=== PATIENT | male | born 1945 | race Caucasian/White ===

== ENCOUNTER → 2016-09-07 | Outpatient (CLI) | payer BC ==
[2016-09-07 17:30] LABS: Blood Urea Nitrogen 20 mg/dL (9-20); Non-African American GFR(MDRD) >60 (>60 ml/min/1.73 sqM)
--- NOTE | 2016-09-10 08:25 | CT ---
EXAMINATION TYPE: CT abdomen pelvis wo/w con DATE OF EXAM: 09/07/2016 6:58 PM COMPARISON: 05/13/2007, MRI lumbar spine 08/23/2016 INDICATION: Pt states of abdominal pain and abnormal findings on MRI. DLP: 2102.7 mGycm, Automated exposure control for dose reduction was used. CONTRAST: 100 mL of Omnipaque 300. Study performed with Oral Contrast TECHNIQUE: Axial images were obtained from above the diaphragm to the pubic rami in the axial plane a t 5 mm thick sections. Reconstructed images are reviewed on the computer in the coronal plane. FINDINGS: Limited CT sections are obtained the lung bases. The lung bases are clear. Coronary artery calcific ation is present. CT ABDOMEN: Liver: Normal Spleen: Normal Pancreas: Normal Adrenal glands: The adrenal glands are normal. Gallbladder: Normal Kidneys: Right kidney is atrophic. No masses are evident. No hydronephrosis is present. No cysts ar e present. Delayed images were obtained through the kidneys, which remain unremarkable. Aorta: Vascular calcification is within the aorta. There is aneurysmal dilatation of the distal abdo joel aorta measuring 3.8 cm in AP dimension. This begins in the infrarenal region and terminates abo ve the bifurcation. Inferior vena cava: Normal. CT PELVIS: Loops of bowel within the abdomen and pelvis are normal. There are loops of bowel which are incom pletely distended or lack oral contrast limiting their evaluation. Diverticular changes are through t he sigmoid colon. Appendix: Normal as visualized. Urinary bladder: Normal. Genitourinary structures: Prostate is prominent. Osseous structures: No suspicious lytic or sclerotic lesions. IMPRESSIONS: 1. Sigmoid diverticulosis without acute diverticulitis. 2. Atrophic right kidney.
== END | disposition home or self-care (01) ==
LOC: RADCTMAIN 16:11
PROVIDERS: ATTEND Physical Medicine & Rehabilitation
DX: N26.1 Atrophy of kidney (terminal) (principal); K57.30 Diverticulosis of large intestine without perforation or abscess without bleeding; M47.27 Other spondylosis with radiculopathy, lumbosacral region
CPT/HCPCS: 82565; 84520; 74178; 36415; Q9967

== ENCOUNTER 2021-07-10 13:20 | Inpatient (IN) | payer BC, MEDICARE ==
--- NOTE | 2021-07-10 13:41 | ED ---
Chest Pain HPI - General Stated Complaint: Chest Pain - History of Present Illness Initial Comments: 75-year-old male with past medical history of anxiety/depression, hyperlipidemia, thyroid disorder who presents to the emergency department with chest pain. Patient reports that he began having chest pain around 11:00 this morning. Described as a pressure sensation in his substernal region which radiates through to his back. He was significant at home, described as 10 out of 10 pain. He had associated nausea and diaphoresis. Patient denies previous history of cardiac disease. He called EMS who provided him with 4 chewable aspirins and 2 nitro. Patient does report to improvement in his pain. He denies ripping or tearing station to his back. No fevers, chills or cough. No headaches or visual changes. No other alleviating, precipitating or modifying factors - Related Data Home Medications Medication Instructions Recorded Confirmed ALPRAZolam [Xanax] 0.25 mg PO TID PRN 07/10/21 07/10/21 Atorvastatin [Lipitor] 20 mg PO HS 07/10/21 07/10/21 Dorzolamide 2% [Trusopt 2%] 1 drops BOTH EYES BID 07/10/21 07/10/21 Latanoprost [Xalatan 0.005%] 1 drop BOTH EYES HS 07/10/21 07/10/21 Levothyroxine Sodium [Synthroid] 100 mcg PO DAILY 07/10/21 07/10/21 Naproxen Sodium [Aleve] 220 mg PO DAILY 07/10/21 07/10/21 Tamsulosin [Flomax] 0.4 mg PO DAILY 07/10/21 07/10/21 buPROPion HCL [Wellbutrin XL] 300 mg PO DAILY 07/10/21 07/10/21 Allergies Allergy/AdvReac Type Severity Reaction Status Date / Time brimonidine AdvReac Rash/Hives Verified 07/10/21 17:59 Review of Systems ROS Statement: Those systems with pertinent positive or pertinent negative responses have been documented in the HPI. ROS Other: All systems not noted in ROS Statement are negative. EKG Findings - EKG Comments: EKG Findings:: EKG demonstrates sinus rhythm with a rate of 59. QRS 96. QTC of 429. There is ST segment elevation 1, aVL with reciprocal depressions in 3 and aVF. Past Medical History Past Medical History: Hyperlipidemia, Osteoarthritis (OA), Prostate Disorder, Thyroid Disorder History of Any Multi-Drug Resistant Organisms: None Reported Past Surgical History: Heart Catheterization Past Anesthesia/Blood Transfusion Reactions: No Reported Reaction Past Psychological History: Anxiety, Depression Past Alcohol Use History: Occasional Past Drug Use History: None Reported - Past Family History Father Additional Family Medical History / Comment(s): suicide Mother Family Medical History: Cancer Additional Family Medical History / Comment(s): bone and blood CA Brother(s) Additional Family Medical History / Comment(s): stents Course Vital Signs 07/10/21 07/10/21 07/10/21 13:40 13:44 13:46 Temperature Pulse Rate 58 L 59 L 61 Pulse Rate [ Dental Specialist ] Respiratory 20 20 20 Rate Blood Pressure 144/79 138/82 138/83 Blood Pressure [Left Arm] O2 Sat by Pulse 100 100 Oximetry 07/10/21 07/10/21 07/10/21 13:50 14:48 15:12 Temperature 97.7 F Pulse Rate Pulse Rate [ 53 L Dental Specialist ] Respiratory 12 25 H Rate Blood Pressure 141/84 Blood Pressure 124/69 [Left Arm] O2 Sat by Pulse 97 Oximetry 07/10/21 07/10/21 07/10/21 15:15 15:17 16:00 Temperature 97.7 F 97.7 F Pulse Rate 57 L 60 Pulse Rate [ Dental Specialist ] Respiratory 10 L Rate Blood Pressure 123/74 124/71 Blood Pressure [Left Arm] O2 Sat by Pulse 97 97 Oximetry 07/10/21 07/10/21 17:00 18:00 Temperature Pulse Rate 59 L 80 Pulse Rate [ Dental Specialist ] Respiratory 16 17 Rate Blood Pressure 133/88 111/64 Blood Pressure [Left Arm] O2 Sat by Pulse 95 97 Oximetry Chest Pain MDM - MDM Upon arrival the patient was placed into room 24. He is placed on continuous pulse ox and cardiac monitoring. 12-lead EKG was obtained by the nurse and brought to me for evaluation. Patient is immediately identified as having lateral wall STEMI. He has ST elevation in 1 and aVL as well as reciprocal changes in the inferior leads. I did evaluate the patient at this time who reports to continue chest pain which is improved after the nitro. STEMI alert is activated. Laboratory studies are ordered. Dr. Cadena does present to the emergency department within 5 minutes to evaluate the patient. Patient is given 4000 units of heparin and taken off to the [facility] in stable condition for cardiac catheterization. I did call and speak with Dr. Crenshaw who agreed to admit the patient Disposition Clinical Impression: Chest pain, STEMI (ST elevation myocardial infarction) Disposition: ADMITTED IP TO THIS HOSP Condition: Stable Is patient prescribed a controlled substance at d/c from ED?: No Decision to Admit Reason: Admit from EC Decision Date: 07/10/21 Decision Time: 14:19
[2021-07-10] MEDS ORDERED: HEPARIN SODIUM 1,000 UN/ML (10ML VL) IVP STA (13:50)
[2021-07-10] MEDS ORDERED: ATORVASTATIN 80 MG TAB PO STA (13:50)
[2021-07-10 13:57] LABS: Basophils # (A) 0.1 k/uL (0-0.2); Basophils % (A) 1 %; Eosinophils # (A) 0.2 k/uL (0-0.7); Eosinophils % (A) 2 %; HCT 38.3 % (39.0-53.0); HGB 12.8 gm/dL (13.0-17.5); Lymphocytes % (A) 11 %; MCH 29.9 pg (25.0-35.0); MCHC 33.3 g/dL (31.0-37.0); MCV 89.8 fL (80.0-100.0); Mean Platelet Volume 8.2; Monocytes # (A) 0.4 k/uL (0-1.0); Monocytes % (A) 4 %; Neutrophils # (A) 7.1 k/uL (1.3-7.7); Neutrophils % (A) 81 %; Platelet Count 169 k/uL (150-450); RBC 4.27 m/uL (4.30-5.90); RDW 13.1 % (11.5-15.5); WBC 8.8 k/uL (3.8-10.6)
[2021-07-10] MEDS ORDERED: SODIUM CHLORIDE 0.9% 500 ML 500 ML IV ONE (14:00)
[2021-07-10] MEDS ORDERED: fentaNYL (PF) 50 MCG/ML 2 ML AMP ONE (14:04)
[2021-07-10] MEDS ORDERED: LIDOCAINE 1% INJ 10MG/ML (20 ML MDV) ONE (14:04)
[2021-07-10] MEDS ORDERED: VERAPAMIL 2.5 MG/ML 2 ML AMP ONE (14:04)
[2021-07-10 14:10] LABS: Albumin 3.5 g/dL (3.5-5.0); Calcium 8.1 mg/dL (8.4-10.2); Magnesium 1.6 mg/dL (1.6-2.3); Potassium 4.2 mmol/L (3.5-5.1); Total Bilirubin 0.8 mg/dL (0.2-1.3); Total Protein 6.1 g/dL (6.3-8.2)
[2021-07-10] MEDS ORDERED: fentaNYL (PF) 50 MCG/ML 2 ML AMP IV ONE (14:11)
[2021-07-10] MEDS ORDERED: LIDOCAINE 1% INJ 10MG/ML (20 ML MDV) SQ ONE (14:11)
[2021-07-10 14:15] LABS: Prothrombin Time 10.7 sec (9.0-12.0)
[2021-07-10] MEDS ORDERED: VERAPAMIL SYRINGE (5 MG/10 ML) INTRAARTER ONE (14:15)
[2021-07-10] MEDS ORDERED: HEPARIN SODIUM 1,000 UN/ML (10ML VL) IV ONE (14:19)
[2021-07-10] MEDS ORDERED: NALOXONE 0.4 MG/ML 1 ML VIAL IV PRN (14:19)
[2021-07-10] MEDS ORDERED: TICAGRELOR 90 MG TAB ONE (14:21)
[2021-07-10] MEDS ORDERED: TICAGRELOR 90 MG TAB PO ONE (14:22)
--- NOTE | 2021-07-10 14:24 | XR ---
EXAMINATION TYPE: XR chest 1V portable DATE OF EXAM: 07/10/2021 Comparison: 09/03/2014 Clinical History: 75-year-old male with chest pain Findings: Heart limits of normal in size. Mild tortuosity/ectasia of the thoracic aorta. Diffuse interstitial p rominence appears increased from 2014. No judith consolidation or sizable pleural effusion on the fron alison view. Impression: Cardiomegaly and diffuse interstitial changes. Correlate for mild CHF with pulmonary vascular congest ion.
[2021-07-10] MEDS ORDERED: NITROGLYCERIN 1000MCG/10ML SYRINGE INTRACORON ONE (14:30)
[2021-07-10] MEDS ORDERED: IOPAMIDOL-370 125ML BTL INJ ONE (14:34)
[2021-07-10] MEDS ORDERED: IOPAMIDOL-370 100ML BTL INJ ONE (14:39)
[2021-07-10] MEDS ORDERED: MAG HYDROX/AL HYDROX/SIMETH 30 ML CUP PO PRN (14:48)
[2021-07-10] MEDS ORDERED: ATROPINE SULFATE 0.1 MG/ML 10ML SYRINGE IV PRN (14:48)
[2021-07-10] MEDS ORDERED: RX INFO: IV CONTRAST WAS GIVEN 1 EACH MISC MISCELLANE PRN (14:48)
[2021-07-10] MEDS ORDERED: ZOLPIDEM 5 MG TAB PO PRN (14:48)
[2021-07-10] MEDS ORDERED: NITROGLYCERIN SL TABS 0.4 MG TAB SUBLINGUAL PRN (14:48)
--- NOTE | 2021-07-10 14:57 | P.CRDCN ---
History of Present Illness Consult date: 07/10/21 History of present illness: History of Present Illness: The patient is a 75-year-old male with known history of hypertension, recently diagnosed with possible abdominal aortic aneurysm who presented to the emergency room with severe substernal chest discomfort. He has no prior history of myocardial infarction or congestive heart failure. In the ER his EKG showed ST segment elevation in lead 1 and aVL. He denies any chronic dyspnea on exertion, peripheral edema, dizziness or palpitations. He has no history of PND or orthopnea. He has no prior history of malignant arrhythmia. He was scheduled to undergo CT scan of his abdomen to further evaluate his abdominal aortic aneurysm. His medications are home include metoprolol 25 mg daily levothyroxine, aspirin Proscar, Effexor Review of Systems: Respiratory: No history of asthma, bronchitis or recent cough. GI: She had nausea and vomiting today. No history of peptic ulcer disease. No recent GI bleed. : No hematuria or dysuria. Nervous System: No stroke or seizure. Physical Examination: Blood pressure 138/80 the heart rate in the 60s Head: Normocephalic. Eyes: Sclerae nonicteric. Neck: Good carotid upstroke, no bruit, no jugular venous distention. Lungs: Clear to auscultation. Heart: Regular rate and rhythm, S1-S2, no S3, no rub. Systolic ejection murmur at the base . Abdomen: Soft nontender, positive bowel sounds no organomegaly. Extremities: No edema, intact distal pulses. Labs: EKG shows sinus mechanism with ST segment elevation in 1 and aVL and T-wave inversion in leads 3 and aVF. Labs pending Impression: 1. Acute high lateral wall AR probable diagonal branch territory 2. History of hypertension 3. History of abdominal aortic aneurysm Plan: 1. Proceed with emergent cardiac catheterization, the risks and the complications were discussed with the patient and his 2. Obtain an echocardiogram with Doppler 3. Obtain an ultrasound of the abdomen to evaluate the abdominal aortic aneurysm 4. Add statin 5. Depending on his progress further recommendations will be made. Thank you for this consult we will follow with you. Past Medical History Past Medical History: Hyperlipidemia, Osteoarthritis (OA), Prostate Disorder, Thyroid Disorder History of Any Multi-Drug Resistant Organisms: None Reported Past Surgical History: Heart Catheterization Past Anesthesia/Blood Transfusion Reactions: No Reported Reaction Past Psychological History: Anxiety, Depression Past Alcohol Use History: Occasional Past Drug Use History: None Reported - Past Family History Father Additional Family Medical History / Comment(s): suicide Mother Family Medical History: Cancer Additional Family Medical History / Comment(s): bone and blood CA Brother(s) Additional Family Medical History / Comment(s): stents Medications and Allergies Home Medications Medication Instructions Recorded Confirmed Type Finasteride [Proscar] 5 mg PO DAILY 09/03/14 04/19/15 History Levothyroxine Sodium [Synthroid] 25 mcg PO DAILY 09/03/14 04/19/15 History Mirabegron [Myrbetriq] 50 mg PO DAILY 09/03/14 04/19/15 History ALPRAZolam [Xanax] 0.25 mg PO BID PRN #10 tab 09/04/14 04/19/15 Rx Aspirin 81 mg PO DAILY 09/04/14 04/19/15 History Metoprolol Tartrate [Lopressor] 25 mg PO DAILY 09/13/14 04/19/15 History Venlafaxine HCl [Effexor] 75 mg PO DAILY 09/13/14 04/19/15 History Allergies Allergy/AdvReac Type Severity Reaction Status Date / Time No Known Allergies Allergy Verified 04/13/15 11:16 Physical Exam Vitals: Vital Signs Pulse Resp BP Pulse Ox 07/10/21 13:50 141/84 07/10/21 13:46 61 20 138/83 07/10/21 13:44 59 L 20 138/82 100 07/10/21 13:40 58 L 20 144/79 100 Intake and Output 07/09/21 07/10/21 07/10/21 22:59 06:59 14:59 Intake Total 150 Balance 150 Intake: IV 150 Other: Weight 92.986 kg Results 07/10/21 13:44 07/10/21 13:44 Cardiac Enzymes 07/10/21 07/10/21 Range/Units 13:44 13:44 AST 23 (17-59) U/L Troponin I 0.073 H* (0.000-0.034) ng/mL Coagulation 07/10/21 Range/Units 13:44 PT 10.7 (9.0-12.0) sec APTT 24.0 (22.0-30.0) sec CBC 07/10/21 Range/Units 13:44 WBC 8.8 (3.8-10.6) k/uL RBC 4.27 L (4.30-5.90) m/uL Hgb 12.8 L (13.0-17.5) gm/dL Hct 38.3 L (39.0-53.0) % Plt Count 169 (150-450) k/uL Comprehensive Metabolic Panel 07/10/21 Range/Units 13:44 Sodium 139 (137-145) mmol/L Potassium 4.2 (3.5-5.1) mmol/L Chloride 111 H (98-107) mmol/L Carbon Dioxide 23 (22-30) mmol/L BUN 24 H (9-20) mg/dL Creatinine 1.55 H (0.66-1.25) mg/dL Glucose 124 H (74-99) mg/dL Calcium 8.1 L (8.4-10.2) mg/dL AST 23 (17-59) U/L ALT 16 (4-49) U/L Alkaline Phosphatase 79 (38-126) U/L Total Protein 6.1 L (6.3-8.2) g/dL Albumin 3.5 (3.5-5.0) g/dL Current Medications Generic Name Dose Route Start Last Admin Trade Name Freq PRN Reason Stop Dose Admin Naloxone HCl 0.2 mg 07/10/21 14:19 Naloxone 0.4 Mg/Ml 1 Ml Vial IV Q2M PRN Opioid Reversal Intake and Output 07/09/21 07/10/21 07/10/21 22:59 06:59 14:59 Intake Total 150 Balance 150 Intake: IV 150 Other: Weight 92.986 kg Patient Weight 07/11/21 06:59 Weight 92.986 kg 07/10/21 13:44 07/10/21 13:44
[2021-07-10] MEDS ORDERED: SODIUM CHLORIDE 0.9% 1,000 ML in EMPTY BAG 1 BAG IV SCH (15:00)
--- NOTE | 2021-07-10 15:04 | P.CARDCATH ---
Date of Procedure: 07/10/21 Description of Procedure: Cardiac Catheterization: The patient is a 75-year-old male who presented with acute chest discomfort and ST elevation in lead 1 and aVL. Recommendations were made regarding cardiac catheterization, the risks and the complications were discussed with the patient who is in full understanding and agreement. Procedure Description: Patient was brought to [facility] in fasting semi-sedated state after receiving Fentanyl and Benadryl achieiving moderate conscious sedated state. Using Xylocaine Anesthesia and Seldinger technique, a 6-Botswanan sheath was introduced in the right radial artery . Subsequently, selective coronary angiography performed using a 5-B[place]wanan 3.5 bend right Matthew catheter and a 6-B[place]wanan 3.75 EBU guiding catheter. Multiple views of the coronary artery including hemiaxial views were obtained. After obtaining images of the coronary arteries angioplasty and stenting was performed. The 5- [place] pigtail catheter was used to cross the aortic valve and LVEDP was calculated. Following that, catheter and sheath were removed. Hemostasis was obtained with deployment of TR band . There was no immediate complication. Patient was returned to room in stable condition. Of note, the patient received a total of 4000 units of intravenous heparin as well as intra-arterial verapamil. There was no immediate complications. Findings: Fluoroscopy showed severe calcifications of the proximal LAD and the left main Left main: This is a large size vessel, bifurcating to LAD and left circumflex, left main has mild plaque distally of 10-20% LAD: This is a large size vessel, reaching to the apex with a wraparound the apex segment. The proximal LAD is calcified and had a stent to 20% plaque, it gives rise to a first diagonal branch that is totally occluded proximally with no antegrade flow. The mid and distal LAD has no high-grade stenosis. Left circumflex: This is a nondominant vessel, small to moderate in caliber and gives rise to an obtuse marginal branch of small caliber that has intimal disease proximally up to 70% the rest of the vessel has no high-grade stenosis RCA: This is a large dominant vessel, bifurcating into PDA and PLV. The mid RCA has diffuse intimal disease up to 40%. The ostium of the PDA has 70% plaque. The rest of the vessel has no high-grade stenosis [Left] Ventriculogram: Was not performed Hemodynamics: There was no gradient across the aortic valve, LVEDP 16-22 mmHg Conclusion: 1. Acutely occluded first diagonal branch 2. Moderate disease in the RCA and left circumflex 3. Mild disease in the left main and proximal LAD 4. Calcified left main and LAD Recommendations: In view of the findings and the anatomy I have recommended to proceed with angioplasty and stenting of the diagonal branch. The procedure as well as the risks and the complications were discussed with the patient who was in full understanding and agreement.
--- NOTE | 2021-07-10 15:09 | P.CARDCATH ---
Date of Procedure: 07/10/21 Description of Procedure: PERCUTANEOUS TRANSLUMINAL CORONARY ANGIOPLASTY CLINICAL INFORMATION: The patient is a 75-year-old male who presented with an acute myocardial infarction, underwent cardiac catheterization and was found to have totally occluded first diagonal branch. Recommendations were made reg arding angioplasty and stenting, the procedure as well as the risks and the complications were discussed with the patient who was in agreement. PROCEDURE: A 6 Bengali 3.75 EBU guiding catheter was introduced into the system. After cannulating the left main, a 0.014 balanced medium with J-wire with the help of a super cross microcatheter was advanced across the lesion and positioned distally. After removing the microcatheter a 2.5 a 12 mm Treck was advanced and inflation at 8 shane were done. Following that a 2.5 x 18 stent [employer] jos point was deployed. It was dilated at 16. After the last inflation, after appropriate wait, the balloon and the guidewire were withdrawn back into the guiding catheter. Images were obtained and repeated. Those images reveal stable successful stenting. At that point, the guiding catheter, the balloon, and guidewire were removed. Following that LVDP was measured. The sheath was removed. Hemostasis was obtained with deployment the TR band. There were no immediate complications. The patient was returned to the room in stable condition. Of note, the patient received 4000 units of heparin as well as Brilinta. His ACT was followed. He had resolution of his chest discomfort and EKG changes. RESULTS: Successful stenting of the first diagonal branch with reduction of stenosis from 100% to 0% RECOMMENDATIONS: The patient will be continued on dual antiplatelet treatment for one year. The findings and recommendations were discussed with the patient who was in full agreement and understanding. Duration of sedation 33 minutes.
[2021-07-10 15:21] LABS: Glucose,Whole Blood 120 mg/dL (75-99)
[2021-07-10] MEDS ORDERED: SODIUM CHLORIDE 0.9% 1,000 ML IV SCH (17:30)
--- NOTE | 2021-07-10 18:50 | P.HPIM ---
History of Present Illness Patient was on-year-old male came in with complaints of chest pain which started a day morning at 11 AM along with diaphoresis and severe chest discomfort which didn't resolve. Patient usually has angina based which usually resolves in a few minutes but this time it didn't resolve because of which patient came to ER on have ST elevation myocardial infarction [place] patient was taken to [facility] and had stenting of first diagonal branch. Patient had elevated creatinine of 1.55. Patient last creatinine was available for more than 3 years ago at that time it was within normal limits. REVIEW OF SYSTEMS: CONSTITUTIONAL: No fever, no malaise, no fatigue. HEENT: No recent visual problems or hearing problems. Denied any sore throat. CARDIOVASCULAR: NoPND, no palpitations, no syncope. PULMONARY: No shortness of breath, no cough, no hemoptysis. GASTROINTESTINAL: No diarrhea, no nausea, no vomiting, no abdominal pain. NEUROLOGICAL: No headaches, no weakness, no numbness. HEMATOLOGICAL: Denies any bleeding or petechiae. GENITOURINARY: Denies any burning micturition, frequency, or urgency. MUSCULOSKELETAL/RHEUMATOLOGICAL: Denies any joint pain, swelling, or any muscle pain. ENDOCRINE: Denies any polyuria or polydipsia. The rest of the 14-point review of systems is negative. PHYSICAL EXAMINATION: GENERAL: The patient is alert and oriented x3, not in any acute distress. Well developed, well nourished. HEENT: Pupils are round and equally reacting to light. EOMI. No scleral icterus. No conjunctival pallor. Normocephalic, atraumatic. No pharyngeal erythema. No thyromegaly. CARDIOVASCULAR: S1 and S2 present. No murmurs, rubs, or gallops. PULMONARY: Chest is clear to auscultation, no wheezing or crackles. ABDOMEN: Soft, nontender, nondistended, normoactive bowel sounds. No palpable organomegaly. MUSCULOSKELETAL: No joint swelling or deformity. EXTREMITIES: No cyanosis, clubbing, or pedal edema. NEUROLOGICAL: Gross neurological examination did not reveal any focal deficits. SKIN: No rashes. Assessment and plan -Acute ST elevation myocardial infarction: Patient is status post a cardiac ca theterization and angioplasty of first diagonal branch as mentioned above and patient is presently and will antiplatelet therapy, statin, beta natalie. Echocardiogram is pending -Possibility of acute renal failure there may be a chronic kidney disease as well his previous creatinine was 1 which was more than 3 years ago. Patient will continue with IV fluid will recheck the creatinine tomorrow. -Hypothyroidism continue with levothyroxine -Depression for which patient is an approximately which will be continued -Benign prostatic hypertrophy for which patient is on finasteride which will be continued DVT prophylaxis: Past Medical History Past Medical History: Hyperlipidemia, Osteoarthritis (OA), Prostate Disorder, Thyroid Disorder History of Any Multi-Drug Resistant Organisms: None Reported Past Surgical History: Heart Catheterization Past Anesthesia/Blood Transfusion Reactions: No Reported Reaction Past Psychological History: Anxiety, Depression Past Alcohol Use History: Occasional Past Drug Use History: None Reported - Past Family History Father Additional Family Medical History / Comment(s): suicide Mother Family Medical History: Cancer Additional Family Medical History / Comment(s): bone and blood CA Brother(s) Additional Family Medical History / Comment(s): stents Medications and Allergies Home Medications Medication Instructions Recorded Confirmed Type ALPRAZolam [Xanax] 0.25 mg PO TID PRN 07/10/21 07/10/21 History Atorvastatin [Lipitor] 20 mg PO HS 07/10/21 07/10/21 History Dorzolamide 2% [Trusopt 2%] 1 drops BOTH EYES BID 07/10/21 07/10/21 History Latanoprost [Xalatan 0.005%] 1 drop BOTH EYES HS 07/10/21 07/10/21 History Levothyroxine Sodium [Synthroid] 100 mcg PO DAILY 07/10/21 07/10/21 History Naproxen Sodium [Aleve] 220 mg PO DAILY 07/10/21 07/10/21 History Tamsulosin [Flomax] 0.4 mg PO DAILY 07/10/21 07/10/21 History buPROPion HCL [Wellbutrin XL] 300 mg PO DAILY 07/10/21 07/10/21 History Allergies Allergy/AdvReac Type Severity Reaction Status Date / Time brimonidine AdvReac Rash/Hives Verified 07/10/21 17:59 Physical Exam Vitals: Vital Signs Temp Pulse Pulse Resp BP BP Pulse Ox 07/10/21 18:00 80 17 111/64 97 07/10/21 17:00 59 L 16 133/88 95 07/10/21 16:00 97.7 F 60 124/71 97 07/10/21 15:17 97.7 F 07/10/21 15:15 57 L 10 L 123/74 97 07/10/21 15:12 25 H 07/10/21 14:48 97.7 F 53 L 12 124/69 97 07/10/21 13:50 141/84 07/10/21 13:46 61 20 138/83 07/10/21 13:44 59 L 20 138/82 100 07/10/21 13:40 58 L 20 144/79 100 Intake and Output 07/10/21 07/10/21 07/10/21 06:59 14:59 22:59 Intake Total 150 300 Output Total 800 Balance 150 -500 Intake: IV 150 300 0.9 300 Output: Urine 800 Other: Weight 92.986 kg 92.986 kg Results CBC & Chem 7: 07/10/21 13:44 07/10/21 13:44 Labs: Abnormal Lab Results - Last 24 Hours (Table) 07/10/21 07/10/21 07/10/21 Range/Units 13:44 13:44 13:44 RBC 4.27 L (4.30-5.90) m/uL Hgb 12.8 L (13.0-17.5) gm/dL Hct 38.3 L (39.0-53.0) % Chloride 111 H (98-107) mmol/L BUN 24 H (9-20) mg/dL Creatinine 1.55 H (0.66-1.25) mg/dL Glucose 124 H (74-99) mg/dL POC Glucose (mg/dL) (75-99) mg/dL Calcium 8.1 L (8.4-10.2) mg/dL Troponin I 0.073 H* (0.000-0.034) ng/mL Total Protein 6.1 L (6.3-8.2) g/dL 07/10/21 Range/Units 15:19 RBC (4.30-5.90) m/uL Hgb (13.0-17.5) gm/dL Hct (39.0-53.0) % Chloride (98-107) mmol/L BUN (9-20) mg/dL Creatinine (0.66-1.25) mg/dL Glucose (74-99) mg/dL POC Glucose (mg/dL) 120 H (75-99) mg/dL Calcium (8.4-10.2) mg/dL Troponin I (0.000-0.034) ng/mL Total Protein (6.3-8.2) g/dL Thrombosis Risk Factor Assmnt - Choose All That Apply Any of the Below Risk Factors Present?: Yes Each Factor Represents 1 point: Acute [place] Other Risk Factors: Yes Each Risk Factor Represents 3 Points: Age 75 years or older Other congenital or acquired thrombophilia - If yes, enter type in comment: No Thrombosis Risk Factor Assessment Total Risk Factor Score: 4 Thrombosis Risk Factor Assessment Level: Moderate Risk
[2021-07-10] MEDS: SODIUM CHLORIDE 0.45% 1,000 ML IV SCH (18:59)
[2021-07-10] MEDS: METOPROLOL TARTRATE 25 MG TAB PO SCH (20:55)
[2021-07-10] MEDS ORDERED: Magnesium Replacement Protocol 1 EACH MISC MISCELLANE PRN (22:05)
[2021-07-10] MEDS: MAGNESIUM SULFATE-D5W PMX 1 GM in DEXTROSE/WATER 1 100ML.BAG IVPB SCH (22:44)
[2021-07-11] MEDS: MAGNESIUM SULFATE-D5W PMX 1 GM in DEXTROSE/WATER 1 100ML.BAG IVPB SCH (00:06)
[2021-07-11 07:24] LABS: HCT 38.1 % (39.0-53.0); HGB 12.4 gm/dL (13.0-17.5); MCHC 32.5 g/dL (31.0-37.0); MCV 92.2 fL (80.0-100.0); Mean Platelet Volume 8.4; Platelet Count 152 k/uL (150-450); RBC 4.13 m/uL (4.30-5.90); RDW 13.4 % (11.5-15.5)
[2021-07-11 07:41] LABS: Calcium 7.8 mg/dL (8.4-10.2); Magnesium 2.1 mg/dL (1.6-2.3); Potassium 4.2 mmol/L (3.5-5.1)
--- NOTE | 2021-07-11 07:58 | P.PN ---
Subjective Progress Note Date: 07/11/21 PROGRESS NOTE The patient is a 75-year-old male presented with an acute lateral wall myocardial infarction and was found to have occluded diagonal branch. He underwent stenting of that vessel. He is doing well this morning, denies any chest discomfort or dyspnea. He is in sinus mechanism without any evidence of ventricular ectopic activity. Hemodynamically he is stable. He continues to be on aspirin once a day, Lipitor 80 mg daily, metoprolol 25 mg twice a day, Brilinta 90 mg twice a day PHYSICAL EXAMINATION: Blood pressure 131/70 heart rate 54 LUNGS: [Clear to auscultation] HEART: [Regular rate and rhythm, S1, S2. No S3. systolic ejection murmur at the base, 2/6 ] ABDOMEN: [Soft, nontender, no organomegaly] EXTREMETIES: [No edema, right radial pulse intact] LAB: Potassium 4.2, hemoglobin 12.4, BUN 20 and creatinine 1.30. Troponin 74.5. IMPRESSION: 1. Post-myocardial infarction with acutely occluded diagonal branch, status post stenting 2. Ckdm-hc-avxvrlnx triple-vessel disease 3. Chronic kidney disease 4. Abdominal aortic aneurysm PLAN: 1. Obtain an echocardiogram with Doppler 2. Follow renal functions and if stable add FERNANDO inhibitor tomorrow 3. Abdominal ultrasound to evaluate abdominal aortic aneurysm. 4. Increase physical activity and transfer to telemetry 5. If stable probable discharge in 24 hours. Objective - Vital Signs Vital signs: Vital Signs Temp 98.0 F 07/11/21 04:00 Pulse 54 L 07/11/21 07:00 Resp 9 L 07/11/21 07:00 BP 131/73 07/11/21 07:00 Pulse Ox 98 07/11/21 07:00 Intake & Output 07/10/21 07/11/21 07/11/21 18:59 06:59 18:59 Intake Total 450 950 75 Output Total 800 1375 0 Balance -350 -425 75 Weight 92.986 kg 97.3 kg Intake: IV 450 950 75 0.9 300 750 75 Magnesium Sulfate-D5w Pmx 200 1 gm In Dextrose/Water 1 100ml.bag @ 100 mls/hr IVPB Q1H [facility] Rx#: [id number] Output: Urine 800 1375 0 Other: Voiding Method Urinal # Voids 1 0 - Labs CBC & Chem 7: 07/11/21 06:43 07/11/21 06:43 Labs: Abnormal Lab Results - Last 24 Hours (Table) 07/10/21 07/10/21 07/10/21 Range/Units 13:44 13:44 13:44 RBC 4.27 L (4.30-5.90) m/uL Hgb 12.8 L (13.0-17.5) gm/dL Hct 38.3 L (39.0-53.0) % Sodium (137-145) mmol/L Chloride 111 H (98-107) mmol/L BUN 24 H (9-20) mg/dL Creatinine 1.55 H (0.66-1.25) mg/dL Glucose 124 H (74-99) mg/dL POC Glucose (mg/dL) (75-99) mg/dL Calcium 8.1 L (8.4-10.2) mg/dL Troponin I 0.073 H* (0.000-0.034) ng/mL Total Protein 6.1 L (6.3-8.2) g/dL 07/10/21 07/10/21 07/10/21 Range/Units 15:19 18:10 21:31 RBC (4.30-5.90) m/uL Hgb (13.0-17.5) gm/dL Hct (39.0-53.0) % Sodium (137-145) mmol/L Chloride (98-107) mmol/L BUN (9-20) mg/dL Creatinine (0.66-1.25) mg/dL Glucose (74-99) mg/dL POC Glucose (mg/dL) 120 H (75-99) mg/dL Calcium (8.4-10.2) mg/dL Troponin I 68.300 H* 74.500 H* (0.000-0.034) ng/mL Total Protein (6.3-8.2) g/dL 07/11/21 07/11/21 Range/Units 06:43 06:43 RBC 4.13 L (4.30-5.90) m/uL Hgb 12.4 L (13.0-17.5) gm/dL Hct 38.1 L (39.0-53.0) % Sodium 136 L (137-145) mmol/L Chloride 109 H (98-107) mmol/L BUN (9-20) mg/dL Creatinine 1.30 H (0.66-1.25) mg/dL Glucose 107 H (74-99) mg/dL POC Glucose (mg/dL) (75-99) mg/dL Calcium 7.8 L (8.4-10.2) mg/dL Troponin I (0.000-0.034) ng/mL Total Protein (6.3-8.2) g/dL
[2021-07-11] MEDS: SODIUM CHLORIDE 0.45% 1,000 ML IV SCH (09:13)
[2021-07-11] MEDS: ASPIRIN 81 MG PO SCH (09:14)
[2021-07-11] MEDS: VENLAFAXINE HCL 75 MG TAB PO SCH (09:14)
[2021-07-11] MEDS: LEVOTHYROXINE 25 MCG TAB PO SCH (09:14)
[2021-07-11] MEDS: TICAGRELOR 90 MG TAB PO SCH ×2 (09:14→19:55)
[2021-07-11] MEDS: METOPROLOL TARTRATE 25 MG TAB PO SCH ×2 (09:14→19:55)
--- NOTE | 2021-07-11 09:24 | US ---
EXAMINATION TYPE: US duplex aorta DATE OF EXAM: 07/11/2021 COMPARISON: CT CLINICAL HISTORY: AAA. Known AAA EXAM MEASUREMENTS: Abdominal Aorta: Proximal: 1.9 x 2.3 cm Mid: 2.3 x 2.3 cm Distal: 4.5 x 4.1 cm Bifurcation: MARIALUISA: 1.3 x 1.4 cm VICENTA: 1.3 x 1.2 cm AAA distal Aorta IMPRESSION: The distal abdominal aorta measures 4.5 x 4.1 cm compatible with aneurysmal dilation. 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
[2021-07-11] MEDS: FINASTERIDE 5 MG TAB PO SCH (10:08)
[2021-07-11 10:19] VITALS: BMI 33.5
--- NOTE | 2021-07-11 13:00 | ECHOF ---
Referral Reason:mi MEASUREMENTS -------- HEIGHT: 170.2 cm WEIGHT: 93.0 kg BP: IVSd: 1.2 cm (0.6 - 1.1) LVIDd: 4.2 cm (3.9 - 5.3) LVPWd: 1.3 cm (0.6 - 1.1) IVSs: 1.5 cm LVIDs: 2.2 cm LVPWs: 1.3 cm LAESV Index (A-L): 35.53 ml/m Ao Diam: 3.6 cm (2.0 - 3.7) AV Cusp: 1.8 cm (1.5 - 2.6) LA Diam: 2.9 cm (2.7 - 3.8) MV EXCURSION: 12.495 mm (> 18.000) MV EF SLOPE: 38 mm/s (70 - 150) EPSS: 1.8 cm MV E Delfin: 1.25 m/s MV DecT: 253 ms MV A Delfin: 1.25 m/s MV E/A Ratio: 1.01 AV maxP.32 mmHg AV meanP.26 mmHg AR PHT: 904 ms RAP: 5.00 mmHg RVSP: 13.45 mmHg FINDINGS -------- This was a technically difficult study with suboptimal views. The left ventricular size is normal. There is mild concentric left ventricular hypertrophy. Overa ll left ventricular systolic function is low-normal with, an EF between 50 - 55 %. The right ventricle is normal in size. LA is moderately dilated 34-39 ml/m2 The right atrial size is normal. 5.0mg of Lumason was utilized for enhancement of images Aortic valve is trileaflet and is mildly thickened. There is mild aortic regurgitation. There is mild aortic stenosis present. Peak/mean gradient across the Aortic Valve is 14.32mmHg / 7.26mmHg. The mitral valve is normal. There is trace mitral regurgitation. Mild tricuspid regurgitation present. Right ventricular systolic pressure is normal at < 35 mmHg. There is no evidence of pulmonary hypertension. There is no pulmonic regurgitation present. The aortic root size is normal. Normal inferior vena cava with normal inspiratory collapse consistent with estimated right atrial pre ssure of 5 mmHg. There is no pericardial effusion. CONCLUSIONS -------- 1. The left ventricular size is normal. 2. There is mild concentric left ventricular hypertrophy. 3. Overall left ventricular systolic function is low-normal with, an EF between 50 - 55 %. 4. LA is moderately dilated 34-39 ml/m2 5. Aortic valve is trileaflet and is mildly thickened. 6. There is mild aortic regurgitation. 7. There is mild aortic stenosis present. 8. Peak/mean gradient across the Aortic Valve is 14.32mmHg / 7.26mmHg. 9. There is trace mitral regurgitation. 10. Mild tricuspid regurgitation present. 11. There is no pericardial effusion. POWER LINEMAN: Yumiko Gallardo RDCS
--- NOTE | 2021-07-11 13:44 | P.PN ---
Subjective Patient was on-year-old male came in with complaints of chest pain which started a day morning at 11 AM along with diaphoresis and severe chest discomfort which didn't resolve. Patient usually has angina based which usually resolves in a few minutes but this time it didn't resolve because of which patient came to ER on have ST elevation myocardial infarction [place] patient was taken to [facility] and had stenting of first diagonal branch. Patient had elevated creatinine of 1.55. Patient last creatinine was available for more than 3 years ago at that time it was within normal limits. 07/11/2021 patient is clinically doing well patient had an echocardiogram which showed normal ejection fraction. Patient probably can be discharged tomorrow his highest troponin was around 74. Constitutional: Denied any fatigue denied any fever. Cardio vascular: denied any chest pain, palpitations Gastrointestinal denied any nausea vomiting Pulmonary: Denied any shortness of breath cough Neurologic denied any new focal deficits All inpatient medications were reviewed and appropriate changes in these medications as dictated in the interval history and assessment and plan. PHYSICAL EXAMINATION: GENERAL: The patient is alert and oriented x3, not in any acute distress. Well developed, well nourished. HEENT: Pupils are round and equally reacting to light. EOMI. No scleral icterus. No conjunctival pallor. Normocephalic, atraumatic. No pharyngeal erythema. No thyromegaly. CARDIOVASCULAR: S1 and S2 present. No murmurs, rubs, or gallops. PULMONARY: Chest is clear to auscultation, no wheezing or crackles. ABDOMEN: Soft, nontender, nondistended, normoactive bowel sounds. No palpable organomegaly. MUSCULOSKELETAL: No joint swelling or deformity. EXTREMITIES: No cyanosis, clubbing, or pedal edema. NEUROLOGICAL: Gross neurological examination did not reveal any focal deficits. SKIN: No rashes. Assessment and plan -Acute ST elevation myocardial infarction: Patient is status post a cardiac catheterization and angioplasty of first diagonal branch as mentioned above and patient is presently and will antiplatelet therapy, statin, beta natalie. Echocardiogram is pending -Possibility of acute renal failure there may be a chronic kidney disease as well his previous creatinine was 1 which was more than 3 years ago. Creatinine did improve from 1.5-1.3 will continue with IV fluids -Hypothyroidism continue with levothyroxine -Depression for which patient is an approximately which will be continued -Benign prostatic hypertrophy for which patient is on finasteride which will be continued Objective - Vital Signs Vital signs: Vital Signs Temp 97.9 F 07/11/21 12:00 Pulse 56 L 07/11/21 12:00 Resp 16 07/11/21 12:00 BP 105/64 07/11/21 12:00 Pulse Ox 96 07/11/21 13:13 Intake & Output 07/10/21 07/11/21 07/11/21 18:59 06:59 18:59 Intake Total 450 950 465 Output Total 800 1375 250 Balance -350 -425 215 Weight 92.986 kg 97.3 kg 97.3 kg Intake: IV 450 950 75 0.9 300 750 75 Magnesium Sulfate-D5w Pmx 200 1 gm In Dextrose/Water 1 100ml.bag @ 100 mls/hr IVPB Q1H [facility] Rx#: [id number] Intake, IV Titration 150 Amount Sodium Chloride 0.45% 1, 150 000 ml @ 75 mls/hr IV . [id number] [facility] Rx#:[id number] Oral 240 Output: Urine 800 1375 250 Other: Voiding Method Urinal Urinal # Voids 1 0 - Labs CBC & Chem 7: 07/11/21 06:43 07/11/21 06:43 Labs: Abnormal Lab Results - Last 24 Hours (Table) 07/10/21 07/10/21 07/10/21 Range/Units 13:44 13:44 13:44 RBC 4.27 L (4.30-5.90) m/uL Hgb 12.8 L (13.0-17.5) gm/dL Hct 38.3 L (39.0-53.0) % Sodium (137-145) mmol/L Chloride 111 H (98-107) mmol/L BUN 24 H (9-20) mg/dL Creatinine 1.55 H (0.66-1.25) mg/dL Glucose 124 H (74-99) mg/dL POC Glucose (mg/dL) (75-99) mg/dL Calcium 8.1 L (8.4-10.2) mg/dL Troponin I 0.073 H* (0.000-0.034) ng/mL Total Protein 6.1 L (6.3-8.2) g/dL 03/21/22 03/21/22 03/21/22 Range/Units 15:19 18:10 21:31 RBC (4.30-5.90) m/uL Hgb (13.0-17.5) gm/dL Hct (39.0-53.0) % Sodium (137-145) mmol/L Chloride (98-107) mmol/L BUN (9-20) mg/dL Creatinine (0.66-1.25) mg/dL Glucose (74-99) mg/dL POC Glucose (mg/dL) 120 H (75-99) mg/dL Calcium (8.4-10.2) mg/dL Troponin I 68.300 H* 74.500 H* (0.000-0.034) ng/mL Total Protein (6.3-8.2) g/dL 07/11/21 07/11/21 Range/Units 06:43 06:43 RBC 4.13 L (4.30-5.90) m/uL Hgb 12.4 L (13.0-17.5) gm/dL Hct 38.1 L (39.0-53.0) % Sodium 136 L (137-145) mmol/L Chloride 109 H (98-107) mmol/L BUN (9-20) mg/dL Creatinine 1.30 H (0.66-1.25) mg/dL Glucose 107 H (74-99) mg/dL POC Glucose (mg/dL) (75-99) mg/dL Calcium 7.8 L (8.4-10.2) mg/dL Troponin I (0.000-0.034) ng/mL Total Protein (6.3-8.2) g/dL
[2021-07-11] MEDS ORDERED: ATORVASTATIN 80 MG TAB PO SCH (21:00)
[2021-07-12 08:20] VITALS: RESP 16; TEMP 97.8
--- NOTE | 2021-07-12 08:39 | P.PN ---
Subjective Progress Note Date: 07/12/21 PROGRESS NOTE The patient is a 75-year-old male presented with an acute lateral wall myocardial infarction and was found to have occluded diagonal branch. He underwent stenting of that vessel. He is doing well this morning, denies any chest discomfort or dyspnea. He is in sinus mechanism without any evidence of ventricular ectopic activity. Hemodynamically he is stable. He continues to be on aspirin once a day, Lipitor 80 mg daily, metoprolol 25 mg twice a day, Brilinta 90 mg twice a day July 12: He is doing well today, denies any chest discomfort, dizziness or palpitations. His abdominal ultrasound showed a distal aortic aneurysm, measuring 4.5 x 4.1 cm. His echocardiogram showed an ejection fraction of 50-55% with mild aortic stenosis. He is in sinus mechanism. He has no evidence of arrhythmia. PHYSICAL EXAMINATION: Blood pressure 116/59 heart rate 66 LUNGS: Clear to auscultation HEART: Regular rate and rhythm, S1, S2. No S3. systolic ejection murmur at the base, 2 ABDOMEN: Soft, nontender, no organomegaly EXTREMETIES: No edema, right radial pulse intact LAB: Creatinine 1.3. Hemoglobin 12.4 IMPRESSION: 1. Post-myocardial infarction with acutely occluded diagonal branch, status post stenting 2. Nlqa-er-zbvevlvt triple-vessel disease 3. Chronic kidney disease, improved 4. Abdominal aortic aneurysm, measuring 4.5 cm PLAN: 1. Continue present therapy with dual antiplatelets treatment for one year 2. Discharged home today and follow-up as an outpatient 3. Follow renal functions and if stable add FERNANDO inhibitor. Objective - Vital Signs Vital signs: Vital Signs Temp 97.8 F 07/12/21 08:00 Pulse 66 07/12/21 08:00 Resp 16 07/12/21 08:00 BP 116/59 07/12/21 08:00 Pulse Ox 97 07/12/21 08:00 Intake & Output 07/11/21 07/12/21 07/12/21 18:59 06:59 18:59 Intake Total 605 480 420 Output Total 250 0 Balance 355 480 420 Weight 97.3 kg Intake: IV 95 0.9 75 Invasive Line 1 10 Invasive Line 2 10 Intake, IV Titration 150 Amount Sodium Chloride 0.45% 1, 150 000 ml @ 75 mls/hr IV . [id number] [facility] Rx#:[id number] Oral 360 915 420 Output: Urine 250 Stool 0 0 Urine/Stool Mix 0 Other: Voiding Method Urinal Urinal # Voids 0 3 # Bowel Movements 0 - Labs CBC & Chem 7: 07/11/21 06:43 07/11/21 06:43
[2021-07-12 09:08] LABS: Calcium 8.3 mg/dL (8.4-10.2); Potassium 4.4 mmol/L (3.5-5.1)
[2021-07-12] MEDS: TICAGRELOR 90 MG TAB PO SCH (09:12)
[2021-07-12] MEDS: METOPROLOL TARTRATE 25 MG TAB PO SCH (09:13)
[2021-07-12] MEDS: ASPIRIN 81 MG PO SCH (09:13)
[2021-07-12] MEDS: FINASTERIDE 5 MG TAB PO SCH (09:13)
[2021-07-12] MEDS: VENLAFAXINE HCL 75 MG TAB PO SCH (09:13)
[2021-07-12] MEDS: LEVOTHYROXINE 25 MCG TAB PO SCH (09:13)
[2021-07-12] MEDS ORDERED: ALPRAZolam 0.25 MG TAB PO PRN (12:22)
[2021-07-12 12:48] VITALS: BP 114/64; PULSE 51
--- NOTE | 2021-07-12 15:22 | CDI ---
Documentation Clarification Form Date: 07/12/2021 03:06:30 PM From: Sherri Catalan RN, CCDS Admit Date: 07/10/2021 02:22:00 PM Patient Name: Alexandr Blackburn Visit Number: [id number] Discharge Date: ATTENTION: The Clinical Documentation Specialists (CDI) and [facility] Coding Staff appreciate your assistance in clarifying documentation. Please respond to the clarification below the line at the bottom and electronically sign. The CDI & [facility] Coding staff will review the response and follow-up if needed. Please note: Queries are made part of the Legal Health Record. If you have any questions, please contact the author of this message via ITS. Dr. Cam Crenshaw Unspecified CKD is documented in the H/P and subsequent progress note. Additional clarification regarding the stage of CKD is requested. History/Risk Factors: Hyepethyrodism, Hyperlipidemia, Patients Historical: 09/07/16 BUN 20,Creatinine 1.11, GFR >50 Clinical Indicators: 75-year-old male present with chest pain, ruled in for STEMI. On admission 07/10 BUN 24, Creatinine 1.55, GFR 43 07/11 BUN 1.30, Creatinine 1.30, GFR 54 07/12 BUN 22 Creatinine 1.38 GFR 50 Treatment: .45% Saline @75 MLS HR 07/10-07/11 Monitor BUN, CR, Daily x3 Please clarify the stage of the CKD, if known: [ ] CKD Stage 1 (GFR > 90) [ x ] CKD Stage 2 (GFR 60-89) [ ] CKD Stage 3 (GFR 30-59) [ ] CKD Stage 3a (GFR 45-59) [ ] CKD Stage 3b (GFR 30-44) [ ] Other, please specify [ ] Unable to determine (Template Last revised: May 2020) MTDD
--- NOTE | 2021-07-13 09:42 | P.DS ---
Providers Date of admission: 07/10/21 14:22 Expected date of discharge: 07/12/21 Attending physician: Cam Crenshaw Consults: 07/10/21 13:40 Consult Physician Stat Consulting Provider: Duc Caruso Consult Reason/Comments: STEMI ACTIVATION COMPLETE Do you want consulting provider notified?: Yes 07/10/21 14:48 Consult Physician Routine Consulting Provider: Cardiology Shady Consult Reason/Comments: Post Interventional patient Do you want consulting provider notified?: Already Contacted Primary care physician: Alanna Owens Hospital Course: Final diagnosis -Acute ST elevation myocardial infarction: Patient is status post a cardiac catheterization and angioplasty of first diagonal branch -Possibility of acute renal failure, there may be a chronic kidney disease stage 3 as well -Hypothyroidism -Depression -Benign prostatic hypertrophy -Chronic kidney disease stage III -DVT prophylaxis -GI prophylaxis -Full code Discharge disposition Patient is being discharged in a stable condition with guarded prognosis to home. Patient will follow-up with Dr. Owens in the outpatient setting upon discharge. Patient is to follow-up with cardiology as scheduled. Total time taken is greater than 35 minutes. Hospital course This is a 75-year-old male who was recently admitted with chest pain and diaphoresis and severe chest discomfort and was being closely monitored. Patient was found to have STEMI and underwent cardiac catheterization with stenting of the first diagonal branch. Patient will continue on cardiac meds as mentioned below and close follow-up in the outpatient setting in 1 week. Patient also encouraged to follow-up with primary care provider on discharge. On day of discharge patient had multiple episodes of loose stool and realized he had not been taking his Xanax with possible withdrawal from this. Xanax was resumed and patient is encouraged to follow-up with primary care provider on discharge. Loose stools resolved. Currently no reports of chest pain, shortness of breath, or palpitations. Patient is afebrile. No reports of nausea or vomiting and patient is tolerating diet. Patient will be [facility] today. PHYSICAL EXAMINATION: GENERAL: The patient is alert and oriented x3, not in any acute distress. Well developed, well nourished. HEENT: Pupils are round and equally reacting to light. EOMI. No scleral icterus. No conjunctival pallor. Normocephalic, atraumatic. No pharyngeal erythema. No thyromegaly. CARDIOVASCULAR: S1 and S2 present. No murmurs, rubs, or gallops. PULMONARY: Chest is clear to auscultation, no wheezing or crackles. ABDOMEN: Soft, nontender, nondistended, normoactive bowel sounds. No palpable organomegaly. MUSCULOSKELETAL: No joint swelling or deformity. EXTREMITIES: No cyanosis, clubbing, or pedal edema. NEUROLOGICAL: Gross neurological examination did not reveal any focal deficits. SKIN: No rashes. Please refer to medication reconciliation sheet for a list of medications. The impression and plan of care has been dictated by Arleen Perez, Nurse Practitioner as directed. Dr. Flower MD I have performed a history and examination and MDM of this patient, discussed the same with the dictator, and agree with the dictator's assessment and plan as written ,documented as a scribe. Based on total visit time, I have performed more than 50% of the visit. Patient Condition at Discharge: Stable Plan - Discharge Summary Discharge Rx Participant: Yes New Discharge Prescriptions: New Ticagrelor [Brilinta] 90 mg PO BID #180 tab Atorvastatin [Lipitor] 80 mg PO HS #90 tab Metoprolol Tartrate [Lopressor] 25 mg PO BID #180 tab Nitroglycerin Sl Tabs [Nitrostat] 0.4 mg SUBLINGUAL Q5M PRN #100 tab PRN Reason: Chest Pain Finasteride [Proscar] 5 mg PO DAILY #30 tab Aspirin 81 mg PO DAILY #90 tab Continue ALPRAZolam [Xanax] 0.25 mg PO TID PRN PRN Reason: Anxiety buPROPion HCL [Wellbutrin XL] 300 mg PO DAILY Levothyroxine Sodium [Synthroid] 100 mcg PO DAILY Latanoprost [Xalatan 0.005%] 1 drop BOTH EYES HS Dorzolamide 2% [Trusopt 2%] 1 drops BOTH EYES BID Tamsulosin [Flomax] 0.4 mg PO DAILY Naproxen Sodium [Aleve] 220 mg PO DAILY Discontinued Atorvastatin [Lipitor] 20 mg PO HS Discharge Medication List ALPRAZolam [Xanax] 0.25 mg PO TID PRN 07/10/21 [History] Dorzolamide 2% [Trusopt 2%] 1 drops BOTH EYES BID 07/10/21 [History] Latanoprost [Xalatan 0.005%] 1 drop BOTH EYES HS 07/10/21 [History] Levothyroxine Sodium [Synthroid] 100 mcg PO DAILY 07/10/21 [History] Naproxen Sodium [Aleve] 220 mg PO DAILY 07/10/21 [History] Tamsulosin [Flomax] 0.4 mg PO DAILY 07/10/21 [History] buPROPion HCL [Wellbutrin XL] 300 mg PO DAILY 07/10/21 [History] Aspirin 81 mg PO DAILY #90 tab 07/11/21 [Rx] Atorvastatin [Lipitor] 80 mg PO HS #90 tab 07/11/21 [Rx] Metoprolol Tartrate [Lopressor] 25 mg PO BID #180 tab 07/11/21 [Rx] Nitroglycerin Sl Tabs [Nitrostat] 0.4 mg SUBLINGUAL Q5M PRN #100 tab 07/11/21 [Rx] Ticagrelor [Brilinta] 90 mg PO BID #180 tab 07/11/21 [Rx] Finasteride [Proscar] 5 mg PO DAILY #30 tab 07/12/21 [Rx] Follow up Appointment(s)/Referral(s): Alanna Owens MD [Primary Care Provider] - 1-2 days (Please call and schedule post-heart cath follow up appointment.) Yong Barreto MD [STAFF PHYSICIAN] - 1 Week (Please call and schedule post- heart cath follow up appointment.) Ambulatory/Diagnostic Orders: Basic Metabolic Panel [LAB.AMB] Time Frame: 3 Days, Location: None Selected Patient Instructions/Handouts: *Surgery [facility] - After Heart Catheterization - Meatcutter Instructions Activity/Diet/Wound Care/Special Instructions: Activity Limited until follow-up Follow-up primary care provider on discharge Continue current medications Recommend repeat labs in 2-3 days Follow-up with cardiology as discussed Continue heart healthy diet Discharge Disposition: HOME SELF-CARE
== END 2021-07-12 16:36 | disposition home or self-care (01) | DRG 247 ==
LOC: EC 13:20 → 2SICU 14:22 → 3SCARD 07-11 13:30
PROVIDERS: ADMIT Internal Medicine; ATTEND Internal Medicine
PROC: B2111ZZ Fluoroscopy of Multiple Coronary Arteries using Low Osmolar Contrast (ICD-10-PCS; principal; 2021-07-10 23:20)
PROC: 4A023N7 Measurement of Cardiac Sampling and Pressure, Left Heart, Percutaneous Approach (ICD-10-PCS; principal; 2021-07-10 23:20)
PROC: 027034Z Dilation of Coronary Artery, One Artery with Drug-eluting Intraluminal Device, Percutaneous Approach (ICD-10-PCS; principal; 2021-07-10 23:20)
DX: I21.29 ST elevation (STEMI) myocardial infarction involving other sites (principal); N17.9 Acute kidney failure, unspecified; Z87.891 Personal history of nicotine dependence; E03.9 Hypothyroidism, unspecified; E78.5 Hyperlipidemia, unspecified; F32.A Depression, unspecified; F41.9 Anxiety disorder, unspecified; I12.9 Hypertensive chronic kidney disease with stage 1 through stage 4 chronic kidney disease, or unspecified chronic kidney disease; I71.4 Abdominal aortic aneurysm, without rupture; N18.30 Chronic kidney disease, stage 3 unspecified; N40.0 Benign prostatic hyperplasia without lower urinary tract symptoms; Z79.02 Long term (current) use of antithrombotics/antiplatelets; Z79.82 Long term (current) use of aspirin; Z79.890 Hormone replacement therapy; Z79.899 Other long term (current) drug therapy; Z86.79 Personal history of other diseases of the circulatory system; Z81.8 Family history of other mental and behavioral disorders; Z80.8 Family history of malignant neoplasm of other organs or systems; Z88.8 Allergy status to other drugs, medicaments and biological substances
CPT/HCPCS: 36415; 71045; 80048; 80053; 83735; 84484; 85025; 85027; 85610; 85730; 93005; 93306; 93458; 93979; 96374; 96375; 99285

== ENCOUNTER → 2021-09-04 | Outpatient (CLI) | payer MEDICARE ==
[2021-09-04 10:50] LABS: Basophils # (A) 0.04 X 10*3/uL (0.00-0.10); Basophils % (A) 0.7 %; Eosinophils # (A) 0.32 X 10*3/uL (0.04-0.35); Eosinophils % (A) 5.5 %; HCT 34.5 % (39.6-50.0); HGB 11.2 g/dL (13.0-17.0); Immature Grans, Automated 0.3 %; Lymphocytes # (A) 1.33 X 10*3/uL (0.90-5.00); Lymphocytes % (A) 22.8 %; MCH 29.2 pg (27.0-32.0); MCHC 32.5 g/dL (32.0-37.0); MCV 89.8 fL (80.0-97.0); Mean Platelet Volume 11.4 fL (9.5-12.2); Monocytes # (A) 0.55 X 10*3/uL (0.20-1.00); Monocytes % (A) 9.4 %; NRBC Per 100 WBC 0 /100 WBCS (0.0-0.0); Neutrophils # (A) 3.57 X 10*3/uL (1.80-7.70); Neutrophils % (A) 61.3 %; Platelet Count 188 X 10*3/uL (140-440); RBC 3.84 X 10*6/uL (4.40-5.60); RDW 14.8 % (11.5-14.5); WBC 5.83 X 10*3/uL (4.50-10.00)
[2021-09-04 11:07] LABS: ALT 17 U/L (10-49); AST 20 U/L (14-35); African American GFR (CKD) 56.1 (60.0-200.0); Albumin 3.8 g/dL (3.8-4.9); Albumin/Globulin Ratio 1.64 (1.60-3.17); Alkaline Phosphatase 107 U/L (41-126); BUN/Creat Ratio 14.33 Ratio (12.00-20.00); Blood Urea Nitrogen 20.2 mg/dL (9.0-27.0); Calcium 8.6 mg/dL (8.7-10.3); Carbon Dioxide 21.8 mmol/L (20.0-27.5); Chloride 112 mmol/L (96-109); Chol/HDL Ratio 3.53 Ratio; Globulin 2.3 g/dL (1.6-3.3); Glucose 113 mg/dL (70-110); LDL Cholesterol,Calculated 64.8 mg/dL (0.0-131.0); Non-African American GFR(CKD) 48.4 (60.0-200.0); Potassium 4.2 mmol/L (3.5-5.5); Sodium 143 mmol/L (135-145); Total Protein 6.2 g/dL (6.2-8.2)
== END | disposition home or self-care (01) ==
LOC: LABWHC1 06:52
PROVIDERS: ATTEND Internal Medicine
DX: Z00.01 Encounter for general adult medical examination with abnormal findings (principal); E78.00 Pure hypercholesterolemia, unspecified; E03.9 Hypothyroidism, unspecified
CPT/HCPCS: 36415; 80053; 80061; 84443; 85025

== ENCOUNTER → 2022-05-22 | Outpatient (CLI) | payer MEDICARE ==
[2022-05-22 15:38] LABS: Chol/HDL Ratio 3.47 Ratio; LDL Cholesterol,Calculated 67.8 mg/dL (0.0-131.0)
== END | disposition home or self-care (01) ==
LOC: LABWHC1 08:11
PROVIDERS: ATTEND Internal Medicine Interventional Cardiology
DX: E78.2 Mixed hyperlipidemia (principal)
CPT/HCPCS: 36415; 80061

== ENCOUNTER → 2022-12-07 | Outpatient (CLI) | payer MEDICARE ==
[2022-12-07 16:36] LABS: ALT 25 U/L (10-49); AST 30 U/L (14-35); Albumin 4.5 d/dL (3.8-4.9); Albumin/Globulin Ratio 2.05 Ratio (1.60-3.17); Alkaline Phosphatase 109 U/L (41-126); BUN/Creat Ratio 15.71 Ratio (12.00-20.00); Calcium 9.3 mg/dL (8.7-10.3); Chloride 108 mmol/L (96-109); Chol/HDL Ratio 3.82 Ratio; Globulin 2.2 d/dL (1.6-3.3); Glucose 119 mg/dL (70-110); LDL Cholesterol,Calculated 88.8 mg/dL (0.0-131.0); Potassium 4.8 mmol/L (3.5-5.5); Sodium 143 mmol/L (135-145); Total Bilirubin 0.6 mg/dL (0.3-1.2); Total Protein 6.7 d/dL (6.2-8.2)
== END | disposition home or self-care (01) ==
LOC: LABWHC1 09:31
PROVIDERS: ATTEND Internal Medicine Interventional Cardiology
DX: E78.2 Mixed hyperlipidemia (principal)
CPT/HCPCS: 36415; 80053; 80061

== ENCOUNTER → 2023-08-06 | Outpatient (CLI) | payer MEDICARE ==
[2023-08-07 03:18] LABS: Blood Urea Nitrogen 18.8 mg/dL (9.0-27.0); Carbon Dioxide 25.2 mmol/L (21.6-31.8); Chloride 105 mmol/L (96-109); Potassium 4.8 mmol/L (3.5-5.5); Sodium 142 mmol/L (135-145)
[2023-08-07 12:29] LABS: Immunoglobulin M <35.0 mg/dL (40.0-280.0)
[2023-08-07 14:49] LABS: Free Lambda Lt Chain Qnt, Seru 1.88 mg/dL (0.57-2.63)
[2023-08-07 20:04] LABS: Albumin 4.14 g/dL (3.80-4.90)
== END | disposition home or self-care (01) ==
LOC: LABWHC1 15:37
PROVIDERS: ATTEND Internal Medicine
DX: N18.31 Chronic kidney disease, stage 3a (principal)
CPT/HCPCS: 36415; 80051; 82232; 82565; 82570; 82784; 83883; 84165; 84520

== ENCOUNTER → 2023-12-19 | Outpatient (CLI) | payer MEDICARE ==
[2023-12-19 17:32] LABS: ALT 23 U/L (10-49); AST 22 U/L (14-35); Albumin 4.2 g/dL (3.8-4.9); Alkaline Phosphatase 89 U/L (41-126); BUN/Creat Ratio 14.54 Ratio (12.00-20.00); Blood Urea Nitrogen 18.9 mg/dL (9.0-27.0); Calcium 8.7 mg/dL (8.7-10.3); Carbon Dioxide 23.9 mmol/L (21.6-31.8); Chloride 107 mmol/L (96-109); Chol/HDL Ratio 3.21 Ratio; Glucose 109 mg/dL (70-110); LDL Cholesterol,Calculated 56.4 mg/dL (0.0-131.0); Potassium 4.4 mmol/L (3.5-5.5); Sodium 139 mmol/L (135-145); Total Bilirubin 0.7 mg/dL (0.3-1.2); Total Protein 6.2 g/dL (6.2-8.2)
== END | disposition home or self-care (01) ==
LOC: LABWHC1 07:48
PROVIDERS: ATTEND Internal Medicine Interventional Cardiology
DX: E78.2 Mixed hyperlipidemia (principal)
CPT/HCPCS: 36415; 80053; 80061

== ENCOUNTER 2024-02-10 07:33 | Observation (INO) | payer MEDICARE ==
[2024-02-10 08:05] LABS: Glucose,Whole Blood 133 mg/dL (70-110)
--- NOTE | 2024-02-10 08:05 | ED ---
General Adult HPI - General Chief complaint: Syncope Stated complaint: Vertigo Time Seen by Provider: 02/10/24 07:35 Source: patient, EMS Mode of arrival: EMS Limitations: no limitations - History of Present Illness Initial comments: Dictation was produced using [employer] dictation software. please excuse any grammatical, word or spelling errors. Chief Complaint: 78-year-old male presents to the emergency department with dizziness History of Present Illness: Patient is a 70-year-old male he has significant atherosclerotic vascular disease history. He has history of aneurysm, coronary artery disease. States that today he woke up feeling lightheaded. States that not sure if he felt like his heart was racing. He woke up at 4 in the morning go to the bathroom. He feels so unsteady on his feet. Patient states that he took his morning metoprolol dose at night. Denies any chest pain. Denies any shortness of breath. After try to wake up at 4 in the morning to go to the bathroom he sat down for a while tried to stand back up with persistent symptoms. Patient arrived via EMS. The ROS documented in this emergency department record has been reviewed and confirmed by me. Those systems with pertinent positive or negative responses have been documented in the HPI. All other systems are other negative and/or noncontributory. - Related Data Home Medications Medication Instructions Recorded Confirmed ALPRAZolam [Xanax] 0.25 mg PO TID PRN 07/10/21 02/10/24 Latanoprost [Xalatan 0.005%] 1 drop BOTH EYES HS 07/10/21 02/10/24 Ezetimibe [Zetia] 10 mg PO DAILY 02/10/24 02/10/24 Levothyroxine Sodium [Synthroid] 88 mcg PO DAILY 02/10/24 02/10/24 Metamucil Gummy 1 tab PO DAILY 02/10/24 02/10/24 Previous Rx's Medication Instructions Recorded Aspirin 81 mg PO DAILY #90 tab 07/11/21 Atorvastatin [Lipitor] 80 mg PO HS #90 tab 07/11/21 Metoprolol Tartrate [Lopressor] 25 mg PO BID #180 tab 07/11/21 Nitroglycerin Sl Tabs [Nitrostat] 0.4 mg SUBLINGUAL Q5M PRN #100 tab 07/11/21 Allergies Allergy/AdvReac Type Severity Reaction Status Date / Time brimonidine AdvReac Rash/Hives Verified 02/10/24 10:01 Review of Systems ROS Statement: Those systems with pertinent positive or pertinent negative responses have been documented in the HPI. ROS Other: All systems not noted in ROS Statement are negative. Past Medical History Past Medical History: Hyperlipidemia, Osteoarthritis (OA), Prostate Disorder, Thyroid Disorder History of Any Multi-Drug Resistant Organisms: None Reported Past Surgical History: Heart Catheterization Past Anesthesia/Blood Transfusion Reactions: No Reported Reaction Past Psychological History: Anxiety, Depression Past Alcohol Use History: Occasional Past Drug Use History: None Reported - Past Family History Father Additional Family Medical History / Comment(s): suicide Mother Family Medical History: Cancer Additional Family Medical History / Comment(s): bone and blood CA Brother(s) Additional Family Medical History / Comment(s): stents General Exam - General Exam Comments Initial Comments: PHYSICAL EXAM: General Impression: Alert and oriented x3, not in acute distress HEENT: Normocephalic atraumatic, extra-ocular movements intact, pupils equal and reactive to light bilaterally, mucous membranes moist. Cardiovascular: Heart regular rate and rhythm Chest: Able to complete full sentences, no retractions, no tachypnea Abdomen: abdomen soft, non-tender, non-distended, no organomegaly Musculoskeletal: Pulses present and equal in all extremities, no peripheral edema Motor: no focal deficits noted Neurological: CN II-XII grossly intact, no focal motor or sensory deficits noted Skin: Intact with no visualized rashes Psych: Normal affect and mood Limitations: no limitations Course Vital Signs 02/10/24 02/10/24 02/10/24 07:35 07:57 08:33 Temperature 97.6 F Pulse Rate 48 L 46 L Pulse Rate [ 48 L Pulse Oximetery ] Respiratory 20 Rate Blood Pressure 156/73 121/62 O2 Sat by Pulse 97 98 Oximetry 02/10/24 09:39 Temperature Pulse Rate 54 L Pulse Rate [ Pulse Oximetery ] Respiratory 18 Rate Blood Pressure 136/77 O2 Sat by Pulse 99 Oximetry EKG Findings - EKG Comments: EKG Findings:: My EKG interpretation: Ventricular rate 43, sinus bradycardia,. 156, QRS 97, QTc 418. No MT prolongation, no QTC prolongation, no ST or T-wave changes noted. Overall this EKG is concerning for sinus bradycardia Medical Decision Making - Medical Decision Making Was pt. sent in by a medical professional or institution (, PA, FRUIT BUYING GRADER, urgent care, hospital, or retirement...) When possible be specific @ -No Did you speak to anyone other than the patient for history (EMS, parent, family, police, friend...)? What history was obtained from this source @ - at the bedside as described above Did you review nursing and triage notes (agree or disagree)? Why? @ -I reviewed and agree with nursing and triage notes Were old charts reviewed (outside hosp., previous admission, EMS record, old EKG, old radiological studies, urgent care reports/EKG's, retirement records)? Report findings @ -No old charts were reviewed Differential Diagnosis (chest pain, altered mental status, abdominal pain women, abdominal pain men, vaginal bleeding, musculoskeletal, weakness, fever, dyspnea, syncope, headache, dizziness, GI bleed, back pain, seizure, CVA, palpatations, mental health)? @ -Differential Dizziness: Benign paroxysmal positional Vertigo, Meniere's disease, otitis media, acoustic neuroma, vertebrobasilar insufficiency, cerebellar stroke, encephalitis, hypovolemic, arrhythmia, coronary artery syndrome, anemia, this is not meant to be an all-inclusive list EKG interpreted by me (3pts min.). @ -See above X-rays interpreted by me (1pt min.). @ -Chest x-ray shows mild pulmonary vascular congestion CT interpreted by me (1pt min.). @ -None done U/S interpreted by me (1pt. min.). @ -None done What testing was considered but not performed or refused? (CT, X-rays, U/S, labs)? Why? @ -None What meds were considered but not given or refused? Why? @ -None Was smoking cessation discussed for >3mins.? @ -No Were there social determinants of health that impacted care today? How? (Homelessness, low income, unemployed, alcoholism, drug addiction, transportation, low edu. Level, literacy, decrease access to med. care, assisted, rehab)? @ -No Was there de-escalation of care discussed even if they declined (Discuss DNR or withdrawal of care, Hospice)? DNR status @ -No What co-morbidities impacted this encounter? (DM, HTN, Smoking, COPD, CAD, Cancer, CVA, ARF, Chemo, Hep., AIDS, mental health diagnosis, sleep apnea, morbid obesity)? @ -Metoprolol use Was patient admitted / discharged? Hospital course, mention meds given and rou te, prescriptions, significant lab abnormalities, going to OR and other pertinent info. @ -70-year-old male presents emergency department with orthostasis. Vital signs upon arrival shows bradycardia. Rest of vital signs within acceptable limits. Laboratory evaluation obtained found to be within acceptable limits. Patient be admitted observation for cardiology consultation and cardiac monitori ng. Did you discuss the management of the patient with other professionals (professionals i.e. , PA, FRUIT BUYING GRADER, lab, RT, psych nurse, social media marketing specialist, contract designer, teacher, child support officer, correctional case records supervisor)? Give summary @ -Case discussed with hospitalist for admission Was critical care preformed (if so, how long)? @ -No Undiagnosed new problem with uncertain prognosis? @ -No Drug Therapy requiring intensive monitoring for toxicity (Heparin, Nitro, Insulin, Cardizem)? @ -No Were any procedures done? @ -No Diagnosis/symptom? Acute, or Chronic, or Acute on Chronic? Uncomplicated (without systemic symptoms) or Complicated (systemic symptoms)? @ -Symptomatic bradycardia Side effects of treatment? @ -No Exacerbation, Progression, or Severe Exacerbation? @ -No Poses a threat to life or bodily function? How? (Chest pain, USA, MA, pneumonia, PE, COPD, DKA, ARF, appy, cholecystitis, CVA, Diverticulitis, Homicidal, Suicidal, threat to staff... and all critical care pts) @ -yes - Lab Data Result diagrams: 02/10/24 08:10 02/10/24 08:10 Lab Results 02/10/24 02/10/24 02/10/24 Range/Units 08:03 08:10 08:10 WBC 5.7 (3.8-10.6) k/uL RBC 4.03 L (4.30-5.90) m/uL Hgb 12.5 L (13.0-17.5) gm/dL Hct 36.7 L (39.0-53.0) % MCV 91.1 (80.0-100.0) fL MCH 31.1 (25.0-35.0) pg MCHC 34.2 (31.0-37.0) g/dL RDW 13.3 (11.5-15.5) % Plt Count 164 (150-450) k/uL MPV 7.7 Neutrophils % 63 % Lymphocytes % 24 % Monocytes % 6 % Eosinophils % 4 % Basophils % 0 % Neutrophils # 3.6 (1.3-7.7) k/uL Lymphocytes # 1.4 (1.0-4.8) k/uL Monocytes # 0.3 (0-1.0) k/uL Eosinophils # 0.2 (0-0.7) k/uL Basophils # 0.0 (0-0.2) k/uL PT 10.5 (10.0-12.5) sec INR 0.9 (<1.2) APTT 23.0 (22.0-30.0) sec Sodium (137-145) mmol/L Potassium (3.5-5.1) mmol/L Chloride (98-107) mmol/L Carbon Dioxide (22-30) mmol/L Anion Gap mmol/L BUN (9-20) mg/dL Creatinine (0.66-1.25) mg/dL Est GFR (CKD-EPI)AfAm (>60 ml/min/1.73 sqM) Est GFR (CKD-EPI)NonAf (>60 ml/min/1.73 sqM) Glucose (74-99) mg/dL POC Glucose (mg/dL) 133 H (70-110) mg/dL POC Glu Blood Splatter Analyst ID Miller Sepideh Calcium (8.4-10.2) mg/dL Magnesium (1.6-2.3) mg/dL Total Bilirubin (0.2-1.3) mg/dL AST (17-59) U/L ALT (4-49) U/L Alkaline Phosphatase (38-126) U/L Troponin I (0.000-0.034) ng/mL Total Protein (6.3-8.2) g/dL Albumin (3.5-5.0) g/dL 02/10/24 02/10/24 Range/Units 08:10 08:10 WBC (3.8-10.6) k/uL RBC (4.30-5.90) m/uL Hgb (13.0-17.5) gm/dL Hct (39.0-53.0) % MCV (80.0-100.0) fL MCH (25.0-35.0) pg MCHC (31.0-37.0) g/dL RDW (11.5-15.5) % Plt Count (150-450) k/uL MPV Neutrophils % % Lymphocytes % % Monocytes % % Eosinophils % % Basophils % % Neutrophils # (1.3-7.7) k/uL Lymphocytes # (1.0-4.8) k/uL Monocytes # (0-1.0) k/uL Eosinophils # (0-0.7) k/uL Basophils # (0-0.2) k/uL PT (10.0-12.5) sec INR (<1.2) APTT (22.0-30.0) sec Sodium 142 (137-145) mmol/L Potassium 4.3 (3.5-5.1) mmol/L Chloride 111 H (98-107) mmol/L Carbon Dioxide 23 (22-30) mmol/L Anion Gap 8 mmol/L BUN 24 H (9-20) mg/dL Creatinine 1.19 (0.66-1.25) mg/dL Est GFR (CKD-EPI)AfAm 67 (>60 ml/min/1.73 sqM) Est GFR (CKD-EPI)NonAf 58 (>60 ml/min/1.73 sqM) Glucose 122 H (74-99) mg/dL POC Glucose (mg/dL) (70-110) mg/dL POC Glu Blood Splatter Analyst ID Calcium 8.7 (8.4-10.2) mg/dL Magnesium 1.6 (1.6-2.3) mg/dL Total Bilirubin 0.9 (0.2-1.3) mg/dL AST 31 (17-59) U/L ALT 22 (4-49) U/L Alkaline Phosphatase 93 (38-126) U/L Troponin I <0.012 (0.000-0.034) ng/mL Total Protein 6.2 L (6.3-8.2) g/dL Albumin 3.7 (3.5-5.0) g/dL Disposition Clinical Impression: Symptomatic bradycardia Disposition: ADMITTED IP TO THIS HOSP Condition: Fair Referrals: Alanna Owens MD [Primary Care Provider] - 1-2 days Decision Time: 10:00
[2024-02-10] MEDS: SODIUM CHLORIDE 0.9% 1,000 ML IV STA (08:18)
[2024-02-10 08:24] LABS: Basophils % (A) 0 %; Eosinophils # (A) 0.2 k/uL (0-0.7); Eosinophils % (A) 4 %; HCT 36.7 % (39.0-53.0); HGB 12.5 gm/dL (13.0-17.5); Lymphocytes # (A) 1.4 k/uL (1.0-4.8); Lymphocytes % (A) 24 %; MCH 31.1 pg (25.0-35.0); MCHC 34.2 g/dL (31.0-37.0); MCV 91.1 fL (80.0-100.0); Mean Platelet Volume 7.7; Monocytes # (A) 0.3 k/uL (0-1.0); Monocytes % (A) 6 %; Neutrophils # (A) 3.6 k/uL (1.3-7.7); Neutrophils % (A) 63 %; Platelet Count 164 k/uL (150-450); RBC 4.03 m/uL (4.30-5.90); RDW 13.3 % (11.5-15.5); WBC 5.7 k/uL (3.8-10.6)
[2024-02-10] MEDS: ATROPINE SULFATE 0.1 MG/ML 10ML SYRINGE IV STA (08:35)
[2024-02-10 08:44] LABS: ALT 22 U/L (4-49); AST 31 U/L (17-59); African American GFR (CKD) 67 (>60 ml/min/1.73 sqM); Albumin 3.7 g/dL (3.5-5.0); Alkaline Phosphatase 93 U/L (38-126); Anion Gap 8 mmol/L; Blood Urea Nitrogen 24 mg/dL (9-20); Calcium 8.7 mg/dL (8.4-10.2); Carbon Dioxide 23 mmol/L (22-30); Chloride 111 mmol/L (98-107); Glucose 122 mg/dL (74-99); Magnesium 1.6 mg/dL (1.6-2.3); Non-African American GFR(CKD) 58 (>60 ml/min/1.73 sqM); Potassium 4.3 mmol/L (3.5-5.1); Sodium 142 mmol/L (137-145); Total Bilirubin 0.9 mg/dL (0.2-1.3); Total Protein 6.2 g/dL (6.3-8.2)
[2024-02-10 08:45] LABS: INR 0.9 (<1.2); Prothrombin Time 10.5 sec (10.0-12.5)
--- NOTE | 2024-02-10 08:51 | XR ---
EXAMINATION TYPE: XR chest 2V DATE OF EXAM: 02/10/2024 8:46 AM CLINICAL INDICATION: Male, 78 years old with history of syncope; COMPARISON: Chest radiographs from 07/10/2021 TECHNIQUE: XR chest 2V Frontal view of the chest. FINDINGS: Lungs/Pleura: There is no evidence of pleural effusion, focal consolidation, or pneumothorax. Pulmonary vascularity: Mild pulmonary vascular congestion. Heart/mediastinum: Cardiomediastinal silhouette is enlarged. Musculoskeletal: No acute osseous pathology. IMPRESSION: Cardiomegaly and mild pulmonary vascular congestion. Correlate with BNP for congestive heart failure. [facility], , 02/10/2024 8:48 AM
[2024-02-10] MEDS ORDERED: NALOXONE 0.4 MG/ML 1 ML VIAL IV PRN (10:19)
[2024-02-10] MEDS: SODIUM CHLORIDE 0.9% 1,000 ML IV SCH (11:39)
--- NOTE | 2024-02-10 14:59 | P.CRDCN ---
History of Present Illness Consult date: 02/10/24 Reason for Consult (text): Bradycardia History of present illness: This is a 78-year-old male patient of Dr. Cadena with past medical history of coronary artery disease with previous stent to the proximal D1, known EF of 52%, AAA Hyperlipidemia, chronic kidney disease, peripheral vascular disease. We have been asked to evaluate the patient for bradycardia. Patient states that around 4 AM he got up to the bathroom to urinate and he was having lightheadedness and sweats, was hot and clammy and dizzy. He went back to bed and then got up again at 530 and he had the same symptoms but they seem to be worse. He also had nausea with this. While he was in the bathroom, he did not have any worsening of symptoms, no syncope episodes no fall. He was feeling better once he laid down on the bed. Yesterday he also had some left-sided chest pain and jaw pain. Heart rate is in the 40s, blood pressure 156/73, pulse ox 97% on room air. Fernanda ent is seen today in the emergency center waiting for a bed on the cardiac stepdown unit. Patient did have a stress test done last week in the office and this record will be obtained. Patient is scheduled for an outpatient echocardiogram. EKG: Sinus rhythm at 43 bpm Chest x-ray: Cardiomegaly and mild pulmonary vascular congestion. Correlate for heart failure. Laboratory studies: WBC 6, hemoglobin 12.2. Sodium 142, potassium 4.3, BUN 24 creatinine 1.19. Troponin negative x 1. proBNP 738. TSH 0.887. Home cardiac medications: Aspirin 81 mg daily, atorvastatin 80 mg at bedtime, Zetia 10 mg daily, Lopressor 25 mg twice daily, Nitrostat as needed, also on levothyroxine 88 mcg daily. Cardiac catheterization history 07/10/2021 with stent in the proximal D1 Echocardiogram performed 07/10/2021 revealed EF of 52%, mild AR, mild TR, mild . Review Of Systems: At the time of my exam: CONSTITUTIONAL: Denies fever or chills. HEENT: Denies blurred vision, vision changes, or eye pain. Denies hemoptysis CARDIOVASCULAR: Denies chest pain. Denies orthopnea. Denies PND. Denies palpitations RESPIRATORY: Denies shortness of breath. GASTROINTESTINAL: Denies abdominal pain. Denies nausea or vomiting. HEMATOLOGIC: Denies bleeding disorders. GENITOURINARY: Denies any blood in urine. SKIN: Denies puritis. Denies rash. Physical examination: Gen: This is a 78-year-old male in no acute distress VS: reviewed HEENT: Head is atraumatic, normocephalic. Pupils equal, round. Sclerae is anicteric. NECK: Supple. No JVD. LUNGS: Clear to auscultation. No wheezes or rhonchi. No intercostal retractio ns. HEART: Regular rate and rhythm. No murmur. ABDOMEN: Soft No tenderness. EXTREMITIES: No pedal edema. No calf tenderness. NEUROLOGICAL: Patient is awake, alert and oriented x3. Assessment: Bradycardia normally runs low Dizziness lightheadedness, clammy, sweats, nausea History of coronary artery disease with previous stent of the proximal D1 2021 AAA Hyperlipidemia Chronic kidney disease Peripheral vascular disease Plan: Resume patient's home cardiac medications except hold beta-natalie Obtain stress test report from the office from last week Obtain 2-D echocardiogram and Doppler study to assess cardiac structure and function Further recommendations to follow based upon clinical course Thank you kindly for this consultation. Nurse practitioner note has been reviewed, I agree with documented findings and plan of care. Patient was seen and examined. Past Medical History Past Medical History: Hyperlipidemia, Osteoarthritis (OA), Prostate Disorder, Thyroid Disorder History of Any Multi-Drug Resistant Organisms: None Reported Past Surgical History: Heart Catheterization Past Anesthesia/Blood Transfusion Reactions: No Reported Reaction Past Psychological History: Anxiety, Depression Past Alcohol Use History: Occasional Past Drug Use History: None Reported - Past Family History Father Additional Family Medical History / Comment(s): suicide Mother Family Medical History: Cancer Additional Family Medical History / Comment(s): bone and blood CA Brother(s) Additional Family Medical History / Comment(s): stents Medications and Allergies Home Medications Medication Instructions Recorded Confirmed Type ALPRAZolam [Xanax] 0.25 mg PO TID PRN 07/10/21 02/10/24 History Latanoprost [Xalatan 0.005%] 1 drop BOTH EYES HS 07/10/21 02/10/24 History Aspirin 81 mg PO DAILY #90 tab 07/11/21 02/10/24 Rx Atorvastatin [Lipitor] 80 mg PO HS #90 tab 07/11/21 02/10/24 Rx Nitroglycerin Sl Tabs [Nitrostat] 0.4 mg SUBLINGUAL Q5M PRN #100 tab 07/11/21 02/10/24 Rx Ezetimibe [Zetia] 10 mg PO DAILY 02/10/24 02/10/24 History Levothyroxine Sodium [Synthroid] 88 mcg PO DAILY 02/10/24 02/10/24 History Metamucil Gummy 1 tab PO DAILY 02/10/24 02/10/24 History Allergies Allergy/AdvReac Type Severity Reaction Status Date / Time brimonidine AdvReac Rash/Hives Verified 02/10/24 10:01 Physical Exam Vitals: Vital Signs Temp Pulse Pulse Resp BP Pulse Ox 02/10/24 12:00 49 L 18 133/82 98 02/10/24 09:39 54 L 18 136/77 99 02/10/24 08:33 46 L 20 121/62 98 02/10/24 07:57 48 L 02/10/24 07:35 97.6 F 48 L 156/73 97 Intake and Output 02/09/24 02/10/24 02/10/24 22:59 06:59 14:59 Other: Weight 92.986 kg Results 02/11/24 06:12 02/11/24 06:12 Cardiac Enzymes 02/10/24 02/10/24 Range/Units 08:10 08:10 AST 31 (17-59) U/L Troponin I <0.012 (0.000-0.034) ng/mL Coagulation 02/10/24 Range/Units 08:10 PT 10.5 (10.0-12.5) sec APTT 23.0 (22.0-30.0) sec CBC 02/10/24 Range/Units 08:10 WBC 5.7 (3.8-10.6) k/uL RBC 4.03 L (4.30-5.90) m/uL Hgb 12.5 L (13.0-17.5) gm/dL Hct 36.7 L (39.0-53.0) % Plt Count 164 (150-450) k/uL Comprehensive Metabolic Panel 02/10/24 Range/Units 08:10 Sodium 142 (137-145) mmol/L Potassium 4.3 (3.5-5.1) mmol/L Chloride 111 H (98-107) mmol/L Carbon Dioxide 23 (22-30) mmol/L BUN 24 H (9-20) mg/dL Creatinine 1.19 (0.66-1.25) mg/dL Glucose 122 H (74-99) mg/dL Calcium 8.7 (8.4-10.2) mg/dL AST 31 (17-59) U/L ALT 22 (4-49) U/L Alkaline Phosphatase 93 (38-126) U/L Total Protein 6.2 L (6.3-8.2) g/dL Albumin 3.7 (3.5-5.0) g/dL Current Medications Generic Name Dose Route Start Last Admin Trade Name Freq PRN Reason Stop Dose Admin Sodium Chloride 1,000 mls @ 20 mls/hr 02/10/24 10:30 02/10/24 11:39 Saline 0.9% IV 20 mls/hr .Q24H SARIAH Administration Naloxone HCl 0.2 mg 02/10/24 10:19 Naloxone 0.4 Mg/Ml 1 Ml Vial IV Q2M PRN Opioid Reversal Intake and Output 02/09/24 02/10/24 02/10/24 22:59 06:59 14:59 Other: Weight 92.986 kg Patient Weight 02/11/24 06:59 Weight 92.986 kg 02/10/24 08:10 02/10/24 08:10
[2024-02-10] MEDS: ASPIRIN 81 MG PO SCH (15:10)
--- NOTE | 2024-02-10 16:23 | P.HPIM ---
History of Present Illness H&P Date: 02/10/24 Chief Complaint: Dizziness Patient seen pain is a 78-year-old male with a past medical history of coronary artery disease status post stent placement, AAA patient is scheduled to get carotid duplex and lower extremity ultrasound on follow-up with vascular surgery, hypothyroidism, hyperlipidemia, prostate disorder status post Botox injections, anxiety/depression presents to ER with complaints of dizziness. Patient states that he woke up around 4 AM and while going to the bathroom he felt very dizzy and got back to his bed. Patient again woke up at about 5 AM which he usually does and getting ready to go to work. Patient states that she felt not good and nauseated and unstable and sweaty and dizzy. Patient's gave him nitro tablet and EMS was called. Patient noted to be bradycardic with heart rate in upper 40s. Patient states that he has been having jaw pains for the past 1 week and also groin pain mainly on the right side and currently on the left side. He has been taking Tylenol and Aleve. Patient is also complaining of bloating in the abdomen and passing gas. Denied any fever or chills. No chest pain. No shortness of breath. No headache. No cough or sputum production. Denied any recent illnesses or travel. Patient states that he was seen at Dr. Cadena's office recently and had stress test done and currently awaiting for report. Patient states that he did not take his medications yesterday morning and not sure whether he took extra doses last night. EKG on admission showed sinus bradycardia with heart rate 43 Chest x-ray showed cardiomegaly and mild pulmonary vascular congestion. Correlate with BNP for CHF. Laboratory showed WBC 5.7 hemoglobin 12.5 and platelets 164 Sodium 142 potassium 4.3 chloride 101 bicarb is 23 BUN 24 and creatinine 1.19 and blood sugar 122, troponin 0.012 and albumin 3.7 liver enzymes are elevated magnesium 1.6 Review of Systems Constitutional: Patient denies any fever or chills . No generalized weakness or weight loss. Abdomen: Patient denied nausea vomiting and diarrhea and abdominal pain. Cardiovascular: Patient denies any chest pain or short of breath no palpitat ions. No worsening leg swelling. Respiratory: patient denied any cough or sputum production. No shortness of breath Neurologic: Patient denied any numbness or tingling. no headache. Dizziness and lightheaded. Musculoskeletal: Patient denies any complaints of joint swelling or deformity. Skin: Negative Psychiatric: Negative Endocrine: No heat or cold intolerance. No recent weight gain. Genitourinary: No dysuria or hematuria. Left groin pain. All other 14 point ROS negative except the above Past Medical History Past Medical History: Hyperlipidemia, Osteoarthritis (OA), Prostate Disorder, Thyroid Disorder History of Any Multi-Drug Resistant Organisms: None Reported Past Surgical History: Heart Catheterization Past Anesthesia/Blood Transfusion Reactions: No Reported Reaction Past Psychological History: Anxiety, Depression Past Alcohol Use History: Occasional Past Drug Use History: None Reported - Past Family History Father Additional Family Medical History / Comment(s): suicide Mother Family Medical History: Cancer Additional Family Medical History / Comment(s): bone and blood CA Brother(s) Additional Family Medical History / Comment(s): stents Medications and Allergies Home Medications Medication Instructions Recorded Confirmed Type ALPRAZolam [Xanax] 0.25 mg PO TID PRN 07/10/21 02/10/24 History Latanoprost [Xalatan 0.005%] 1 drop BOTH EYES HS 07/10/21 02/10/24 History Aspirin 81 mg PO DAILY #90 tab 07/11/21 02/10/24 Rx Atorvastatin [Lipitor] 80 mg PO HS #90 tab 07/11/21 02/10/24 Rx Metoprolol Tartrate [Lopressor] 25 mg PO BID #180 tab 07/11/21 02/10/24 Rx Nitroglycerin Sl Tabs [Nitrostat] 0.4 mg SUBLINGUAL Q5M PRN #100 tab 07/11/21 02/10/24 Rx Ezetimibe [Zetia] 10 mg PO DAILY 02/10/24 02/10/24 History Levothyroxine Sodium [Synthroid] 88 mcg PO DAILY 02/10/24 02/10/24 History Metamucil Gummy 1 tab PO DAILY 02/10/24 02/10/24 History Allergies Allergy/AdvReac Type Severity Reaction Status Date / Time brimonidine AdvReac Rash/Hives Verified 02/10/24 10:01 Physical Exam Vitals: Vital Signs Temp Pulse Pulse Resp BP Pulse Ox 02/10/24 15:07 53 L 18 140/79 97 02/10/24 12:00 49 L 18 133/82 98 02/10/24 09:39 54 L 18 136/77 99 02/10/24 08:33 46 L 20 121/62 98 02/10/24 07:57 48 L 02/10/24 07:35 97.6 F 48 L 156/73 97 Intake and Output 02/10/24 02/10/24 02/10/24 06:59 14:59 22:59 Other: Weight 92.986 kg PHYSICAL EXAMINATION: Patient is lying in the bed comfortably, no acute distress, awake alert and oriented.. HEENT: Normocephalic. Neck is supple. Pupils reactive. Nostrils clear. Oral cavity is moist. Neck reveals no JVD, carotid bruits, or thyromegaly. CHEST EXAMINATION: Trachea is central. Symmetrical expansion. Lung gonzalez clear to auscultation and percussion. CARDIAC: Normal S1, S2 with no gallops. No murmurs ABDOMEN: Soft. Bowel sounds normal. No organomegaly. No abdominal bruits. Extremities: Bilateral lower extremity trace edema. No clubbing or cyanosis Neurologically awake, alert, oriented x3 with well-coordinated movements. No focal deficits noted Skin: No rash or skin lesions. Psychiatric: Coperative. Nonsuicidal Musculoskeletal: No joint swelling or deformity. Normal range of motion. Results CBC & Chem 7: 02/10/24 08:10 02/10/24 08:10 Labs: Abnormal Lab Results - Last 24 Hours (Table) 02/10/24 02/10/24 02/10/24 Range/Units 08:03 08:10 08:10 RBC 4.03 L (4.30-5.90) m/uL Hgb 12.5 L (13.0-17.5) gm/dL Hct 36.7 L (39.0-53.0) % Chloride 111 H (98-107) mmol/L BUN 24 H (9-20) mg/dL Glucose 122 H (74-99) mg/dL POC Glucose (mg/dL) 133 H (70-110) mg/dL Total Protein 6.2 L (6.3-8.2) g/dL Thrombosis Risk Factor Assmnt - DVT/VTE Prophylaxis DVT/VTE Prophylaxis: Pharmacologic Prophylaxis ordered Assessment and Plan Assessment: Dizziness likely secondary to symptomatic bradycardia with heart rate 43 Coronary artery disease with history of stent placement Abdominal aortic aneurysm 4.5 x 4.1 cm as per ultrasound duplex aorta in 2021 and infrarenal abdominal aortic aneurysm measuring 4.9 cm on 05/25/[address] angiogram of the abdomen. Prostate disorder. Patient was given Botox previously Hyperlipidemia Hypothyroidism Anxiety/depression DVT prophylaxis with heparin subcu Plan: Patient will be continued on telemonitoring. Metoprolol is on hold. Patient will be continued on aspirin, statins. TSH and proBNP levels were ordered. Cardiology was consulted for evaluation. Ultrasound renal and UA was ordered. Started back on home medications and follow-up closely. Discussed with the patient and his at bedside. Time with Patient: Greater than 30
[2024-02-10] MEDS: MAGNESIUM SULFATE-D5W PMX 1 GM in DEXTROSE/WATER 1 100ML.BAG IVPB ONE (16:28)
--- NOTE | 2024-02-10 17:00 | US ---
EXAMINATION TYPE: US kidneys/renal and bladder DATE OF EXAM: 02/10/2024 COMPARISON: 05/25/2022 CLINICAL INDICATION: Male, 78 years old with history of groin pain; Lt flank pain TECHNIQUE: Grayscale and color Doppler imaging of the bilateral kidneys and urinary bladder: FINDINGS: EXAM MEASUREMENTS: Right Kidney: 8.0 x 3.5 x 3.8 cm Left Kidney: 12.4 x 6.1 x 5.4 cm Right Kidney: [employer] Administrator notes: Atrophic in appearance- as visualized on prior CT, no evidence of hy jose Left Kidney: No evidence of hydro Bladder: wnl Bilateral Jets seen: Only left jet visualized IMPRESSION: Atrophic right kidney. No hydronephrosis on either side. [facility], , 02/10/2024 4:58 PM
[2024-02-10] MEDS: ATORVASTATIN 80 MG TAB PO SCH (21:41)
[2024-02-11] MEDS: LATANOPROST 0.005% OPHTH DROPS 2.5 ML BTL BOTH EYES SCH (01:09)
[2024-02-11] MEDS: HEPARIN SODIUM,PORCINE 5,000 UNIT/ML 1 ML VIAL SQ SCH (02:30)
[2024-02-11 06:24] LABS: Basophils % (A) 1 %; Eosinophils # (A) 0.3 k/uL (0-0.7); Eosinophils % (A) 5 %; HCT 37.3 % (39.0-53.0); HGB 12.2 gm/dL (13.0-17.5); Lymphocytes # (A) 1.6 k/uL (1.0-4.8); Lymphocytes % (A) 26 %; MCH 30.6 pg (25.0-35.0); MCHC 32.7 g/dL (31.0-37.0); MCV 93.5 fL (80.0-100.0); Mean Platelet Volume 7.7; Monocytes # (A) 0.3 k/uL (0-1.0); Monocytes % (A) 5 %; Neutrophils # (A) 3.6 k/uL (1.3-7.7); Neutrophils % (A) 60 %; Platelet Count 170 k/uL (150-450); RBC 3.99 m/uL (4.30-5.90); RDW 12.8 % (11.5-15.5)
[2024-02-11 06:32] LABS: African American GFR (CKD) 67 (>60 ml/min/1.73 sqM); Anion Gap 4 mmol/L; Blood Urea Nitrogen 23 mg/dL (9-20); Calcium 8.3 mg/dL (8.4-10.2); Carbon Dioxide 25 mmol/L (22-30); Chloride 111 mmol/L (98-107); Glucose 104 mg/dL (74-99); Non-African American GFR(CKD) 58 (>60 ml/min/1.73 sqM); Potassium 4.1 mmol/L (3.5-5.1); Sodium 140 mmol/L (137-145)
[2024-02-11] MEDS: LEVOTHYROXINE 88 MCG TAB PO SCH (07:44)
--- NOTE | 2024-02-11 08:25 | P.PN ---
Subjective Progress Note Date: 02/11/24 This is a 78-year-old male patient of Dr. Cadena with past medical history of coronary artery disease with previous stent to the proximal D1, known EF of 52%, AAA Hyperlipidemia, chronic kidney disease, peripheral vascular disease. We have been asked to evaluate the patient for bradycardia. Patient states that around 4 AM he got up to the bathroom to urinate and he was having lightheadedness and sweats, was hot and clammy and dizzy. He went back to bed and then got up again at 530 and he had the same symptoms but they seem to be worse. He also had nausea with this. While he was in the bathroom, he did not have any worsening of symptoms, no syncope episodes no fall. He was feeling better once he laid down on the bed. Yesterday he also had some left-sided chest pain and jaw pain. Heart rate is in the 40s, blood pressure 156/73, pulse ox 97% on room air. Patient is seen today in the emergency center waiting for a bed on the cardiac stepdown unit. Patient did have a stress test done last week in the office and this record will be obtained. Patient is scheduled for an outpatient echoc ardiogram. EKG: Sinus rhythm at 43 bpm Chest x-ray: Cardiomegaly and mild pulmonary vascular congestion. Correlate for heart failure. Laboratory studies: WBC 6, hemoglobin 12.2. Sodium 142, potassium 4.3, BUN 24 creatinine 1.19. Troponin negative x 1. proBNP 738. TSH 0.887. Home cardiac medications: Aspirin 81 mg daily, atorvastatin 80 mg at bedtime, Zetia 10 mg daily, Lopressor 25 mg twice daily, Nitrostat as needed, also on levothyroxine 88 mcg daily. Cardiac catheterization history 07/10/2021 with stent in the proximal D1 Echocardiogram performed 07/10/2021 revealed EF of 52%, mild AR, mild TR, mild . 02/10: Patient is seen today in the emergency center waiting for bed on the cardiac stepdown unit. Patient is complaining of feeling cold, no chest pain. Beta-natalie was discontinued. Echocardiogram is pending. Heart rate is in the 40s and 50s, blood pressure 152/68, pulse ox 97% on room air. Stress test report reviewed with the patient. Discussed need for cardiac catheterization with the patient and he is agreeable to move forward. Stress test report was obtained from the office which revealed nondiagnostic electrocardiographic stress testing. Abnormal myocardial perfusion imaging with a partially reversible large size defect involving the lateral and mid anterior wall suggestive stress induced ischemia probably in the diagonal branch territory in the LAD. Physical examination: Gen: This is a 78-year-old male in no acute distress VS: reviewed HEENT: Head is atraumatic, normocephalic. Pupils equal, round. Sclerae is anicteric. NECK: Supple. No JVD. LUNGS: Clear to auscultation. No wheezes or rhonchi. No intercostal retractions. HEART: Regular rate and rhythm. No murmur. ABDOMEN: Soft No tenderness. EXTREMITIES: No pedal edema. No calf tenderness. NEUROLOGICAL: Patient is awake, alert and oriented x3. Assessment: Bradycardia normally runs low Dizziness lightheadedness, clammy, sweats, nausea, left-sided pain of unclear etiology, rule out CAD History of coronary artery disease with previous stent of the proximal D1 2021 AAA Hyperlipidemia Chronic kidney disease Peripheral vascular disease Plan: Continue patient's home cardiac medications except hold beta-natalie Schedule patient for cardiac catheterization tomorrow with Dr. Cadena Obtain 2-D echocardiogram and Doppler study to assess cardiac structure and function Further recommendations to follow based upon clinical course Nurse practitioner note has been reviewed, I agree with documented findings and plan of care. Patient was seen and examined. Objective - Vital Signs Vital signs: Vital Signs Temp 98.0 F 02/11/24 07:41 Pulse 55 L 02/11/24 07:41 Resp 16 02/11/24 07:41 BP 170/86 02/11/24 07:41 Pulse Ox 98 02/11/24 07:41 FiO2 Intake & Output 02/10/24 02/11/24 02/11/24 18:59 06:59 18:59 Weight 92.986 kg - Labs CBC & Chem 7: 02/11/24 06:12 02/11/24 06:12 Labs: Abnormal Lab Results - Last 24 Hours (Table) 02/10/24 02/10/24 02/11/24 Range/Units 08:10 08:10 06:12 RBC 4.03 L (4.30-5.90) m/uL Hgb 12.5 L (13.0-17.5) gm/dL Hct 36.7 L (39.0-53.0) % Chloride 111 H 111 H (98-107) mmol/L BUN 24 H 23 H (9-20) mg/dL Glucose 122 H 104 H (74-99) mg/dL Calcium 8.3 L (8.4-10.2) mg/dL Total Protein 6.2 L (6.3-8.2) g/dL 02/11/24 Range/Units 06:12 RBC 3.99 L (4.30-5.90) m/uL Hgb 12.2 L (13.0-17.5) gm/dL Hct 37.3 L (39.0-53.0) % Chloride (98-107) mmol/L BUN (9-20) mg/dL Glucose (74-99) mg/dL Calcium (8.4-10.2) mg/dL Total Protein (6.3-8.2) g/dL
[2024-02-11] MEDS: EZETIMIBE 10 MG TAB PO SCH (08:33)
[2024-02-11] MEDS ORDERED: NITROGLYCERIN SL TABS 0.4 MG TAB SUBLINGUAL PRN (10:35)
[2024-02-11 11:22] LABS: Appearance,Urine Clear (Clear); Bilirubin,Urine Negative (Negative); Blood,Urine Negative (Negative); Color,Urine Colorless; Glucose,Urine (UA) Negative (Negative); Ketones,Urine Negative (Negative); Leukocyte Esterase,Urine Negative (Negative); Nitrite,Urine Negative (Negative); PH, Urine 5.5 (5.0-8.0); Protein,Urine Negative (Negative); Urobilinogen,Urine <2.0 mg/dL (<2.0)
[2024-02-11 11:41] LABS: Glucose,Whole Blood 105 mg/dL (70-110)
--- NOTE | 2024-02-11 12:57 | CA ---
Transthoracic Echo Report Name: Alexandr Blackburn Age: 78 Gender: M : 1945 Exam Date: 02/11/2024 11:32 Exam Location: [place] [facility] Ht (in): 67 Wt (lb): 205 Ordering Physician: Rosemary Storm Attending/Referring Phys: [id number], [employer] Executive Irene Wright RDCS Procedure CPT: Indications: LVF Cardiac Hx: Technical Quality: Technically difficult study Contrast 1: Definity Total Dose (mL): 2 Contrast 2: Total Dose (mL): MEASUREMENTS (Male / Female) Normal Values 2D ECHO LV Diastolic Diameter PLAX 4.4 cm 4.2 - 5.9 / 3.9 - 5.3 cm LV Systolic Diameter PLAX 2.7 cm IVS Diastolic Thickness 1.4 cm 0.6 - 1.0 / 0.6 - 0.9 cm LVPW Diastolic Thickness 1.6 cm 0.6 - 1.0 / 0.6 - 0.9 cm LV Relative Wall Thickness 0.7 RV Internal Dim ED PLAX 2.8 cm LVOT Diameter 1.6 cm LA Volume 90.1 cm??? 18 - 58 / 22 - 52 cm??? LA Volume Index 42.3 cm???/m??? 16 - 28 cm???/m??? M-MODE Aortic Root Diameter MM 3.9 cm LA Systolic Diameter MM 4.2 cm LA Ao Ratio MM 1.1 AV Cusp Separation MM 1.8 cm DOPPLER AV Peak Velocity 138.8 cm/s AV Peak Gradient 7.7 mmHg AV Mean Velocity 88.2 cm/s AV Mean Gradient 3.6 mmHg AV Velocity Time Integral 29.2 cm AI Peak Velocity 256.8 cm/s AI Peak Gradient 26.4 mmHg AI Pressure Half Time 444.6 ms LVOT Peak Velocity 108.4 cm/s LVOT Peak Gradient 4.7 mmHg LVOT Velocity Time Integral 23.5 cm LVOT Stroke Volume 50.2 cm??? LVOT Stroke Volume Index 24.5 ml/m??? LVOT Cardiac Index 1225.9 cm???/min???m??? AV Area Cont Eq vti 1.7 cm??? AV Area Cont Eq pk 1.7 cm??? MV Area PHT 2.6 cm??? Mitral E Point Velocity 109.8 cm/s Mitral A Point Velocity 105.8 cm/s Mitral E to A Ratio 1.0 MV Deceleration Time 293.1 ms MV E' Velocity 6.3 cm/s Mitral E to MV E' Ratio 17.5 TR Peak Velocity 152.6 cm/s TR Peak Gradient 9.3 mmHg Right Ventricular Systolic Press 14.3 mmHg FINDINGS Left Ventricle Moderately increased left ventricular wall thickness. Left ventricular cavity size normal. Normal left ventricular systolic function with no obvious regional wall motion abnormalities. Left ventricular ejection fraction is estimated at 55-60 %. Grade 1 diastolic dysfunction. Right Ventricle Normal right ventricular size and function. Right ventricular systolic pressure within normal limits. Right Atrium Normal right atrial size. Left Atrium Severely increased left atrial volume. Mildly increased left atrial area. Mitral Valve Structurally normal mitral valve. Mitral valve thickened. Moderate mitral annular calcification. [id number] mitral regurgitation. Aortic Valve Trileaflet aortic valve. No aortic stenosis. Aortic valve sclerosis. Mild aortic regurgitation. Tricuspid Valve Structurally normal tricuspid valve. Mild tricuspid regurgitation. Pulmonic Valve Structurally normal pulmonic valve. Pericardium No pericardial effusion. Aorta Normal size aortic root and proximal ascending aorta. CONCLUSIONS Technically difficult study. Echo contrast was used. Normal systolic function mild to moderate concentric LVH, mild diastolic dysfunction. Enlarged atria specifically left atrium. Mitral annular calcification and aortic valve sclerosis without significant stenosis. There is mild aortic insufficiency, mild to moderate mitral and mild tricuspid regurgitation. No pericardial effusion. No significant pulmonary hypertension Previewed by: Dr. Shelley Nino MD (Electronically Signed) Final Date: 11 February 2024 12:56
[2024-02-11] MEDS: ALPRAZolam 0.5 MG TAB PO PRN (20:14)
[2024-02-12] MEDS: ASPIRIN 325 MG TAB PO ONE (06:19)
[2024-02-12] MEDS ORDERED: HEPARIN SODIUM,PORCINE (1 ML) 2,500 UNIT in SODIUM CHLORIDE 0.9% 250 ML IRRIGATION PRN (07:00)
[2024-02-12] MEDS ORDERED: HEPARIN SODIUM,PORCINE 10,000 UNIT in SODIUM CHLORIDE 0.9% 1,000 ML IRRIGATION PRN (07:00)
[2024-02-12 08:52] LABS: African American GFR (CKD) 62 (>60 ml/min/1.73 sqM); Anion Gap 8 mmol/L; Blood Urea Nitrogen 22 mg/dL (9-20); Calcium 8.8 mg/dL (8.4-10.2); Carbon Dioxide 24 mmol/L (22-30); Chloride 109 mmol/L (98-107); Glucose 108 mg/dL (74-99); Non-African American GFR(CKD) 54 (>60 ml/min/1.73 sqM); Potassium 4.3 mmol/L (3.5-5.1); Sodium 141 mmol/L (137-145)
--- NOTE | 2024-02-12 09:48 | P.PN ---
Subjective Progress Note Date: 02/11/24 Patient seen pain is a 78-year-old male with a past medical history of coronary artery disease status post stent placement, AAA patient is scheduled to get carotid duplex and lower extremity ultrasound on follow-up with vascular surgery, hypothyroidism, hyperlipidemia, prostate disorder status post Botox injections, anxiety/depression presents to ER with complaints of dizziness. Patient states that he woke up around 4 AM and while going to the bathroom he felt very dizzy and got back to his bed. Patient again woke up at about 5 AM which he usually does and getting ready to go to work. Patient states that she felt not good and nauseated and unstable and sweaty and dizzy. Patient's gave him nitro tablet and EMS was called. Patient noted to be bradycardic with heart rate in upper 40s. Patient states that he has been having jaw pains for the past 1 week and also groin pain mainly on the right side and currently on the left side. He has been taking Tylenol and Aleve. Patient is also complaining of bloating in the abdomen and passing gas. Denied any fever or chills. No chest pain. No shortness of breath. No headache. No cough or sputum production. Denied any recent illnesses or travel. Patient states that he was seen at Dr. Cadena's office recently and had stress test done and currently awaiting for report. Patient states that he did not take his medications yesterday morning and not sure whether he took extra doses last night. EKG on admission showed sinus bradycardia with heart rate 43 Chest x-ray showed cardiomegaly and mild pulmonary vascular congestion. Correlate with BNP for CHF. Laboratory showed WBC 5.7 hemoglobin 12.5 and platelets 164 Sodium 142 potassium 4.3 chloride 101 bicarb is 23 BUN 24 and creatinine 1.19 and blood sugar 122, troponin 0.012 and albumin 3.7 liver enzymes are elevated magnesium 1.6 02/11/2024 Patient is in the ER waiting for bed. RN denied any complaints of chest pain. Heart rate is still low. Metoprolol has been discontinued. 2D echocardiogram was done which showed normal systolic function with moderate to concentrate LVH, mild diastolic dysfunction. Enlarged atria specifically left atrium. Mild aortic insufficiency. Mild to moderate MR and mild TR. Stress test report from the prosthetics technician office revealed nondiagnostic electrocardiographic stress testing. Abnormal myocardial perfusion imaging with a partially reversible large size defect involving the lateral and mid anterior wall suggestive of stress-induced ischemia probably in the diagonal branch territory in the LAD. Cardiology is planning for catheterization tomorrow. Lab data showed WBC 5.7 hemoglobin 12.5 platelets 164 sodium 142 potassium 4.3 chloride 111 bicarb is 23 BUN 24 and creatinine 1.19 and blood sugar 122 liver enzymes are not elevated. Current medications reviewed. Objective - Vital Signs Vital signs: Vital Signs Temp 96.2 F L 02/11/24 20:15 Pulse 72 02/11/24 20:15 Resp 17 02/11/24 20:15 BP 183/81 02/11/24 20:15 Pulse Ox 98 02/11/24 20:15 FiO2 Intake & Output 02/11/24 02/11/24 02/12/24 06:59 18:59 06:59 Weight 92.986 kg Other: # Voids 2 - Exam PHYSICAL EXAMINATION: Patient is lying in the bed comfortably, no acute distress, awake alert and oriented.. HEENT: Normocephalic. Neck is supple. Pupils reactive. Nostrils clear. Oral cavity is moist. Neck reveals no JVD, carotid bruits, or thyromegaly. CHEST EXAMINATION: Trachea is central. Symmetrical expansion. Lung gonzalez clear to auscultation and percussion. CARDIAC: Normal S1, S2 with no gallops. No murmurs ABDOMEN: Soft. Bowel sounds normal. No organomegaly. No abdominal bruits. Extremities: Bilateral lower extremity trace edema. No clubbing or cyanosis Neurologically awake, alert, oriented x3 with well-coordinated movements. No focal deficits noted Skin: No rash or skin lesions. Psychiatric: Coperative. Nonsuicidal Musculoskeletal: No joint swelling or deformity. Normal range of motion. - Labs CBC & Chem 7: 02/11/24 06:12 02/12/24 07:59 Labs: Abnormal Lab Results - Last 24 Hours (Table) 02/11/24 02/11/24 Range/Units 06:12 06:12 RBC 3.99 L (4.30-5.90) m/uL Hgb 12.2 L (13.0-17.5) gm/dL Hct 37.3 L (39.0-53.0) % Chloride 111 H (98-107) mmol/L BUN 23 H (9-20) mg/dL Glucose 104 H (74-99) mg/dL Calcium 8.3 L (8.4-10.2) mg/dL Assessment and Plan Assessment: Dizziness likely secondary to symptomatic bradycardia with heart rate 43 on admission Patient with abnormal stress test at prosthetics technician office. Coronary artery disease with history of stent placement Abdominal aortic aneurysm 4.5 x 4.1 cm as per ultrasound duplex aorta in 2021 and infrarenal abdominal aortic aneurysm measuring 4.9 cm on 05/25/[address] angiogram of the abdomen. Prostate disorder. Patient was given Botox previously Hyperlipidemia Hypothyroidism Anxiety/depression DVT prophylaxis with heparin subcu Plan: Patient will be continued on telemonitoring. Metoprolol is on hold. Patient will be continued on aspirin, statins. TSH within normal limits and proBNP levels reviewed. Cardiology is planning for catheterization tomorrow. 2D echocardiogram was ordered.. Ultrasound renal showed no hydronephrosis. Right atrophic kidney. Urinalysis is negative for infection. Started back on home medications.. Discussed with the patient and his at bedside. Continue to follow closely. Time with Patient: Greater than 30
--- NOTE | 2024-02-12 12:02 | P.PN ---
Subjective Progress Note Date: 02/12/24 This is a 78-year-old male patient of Dr. Cadena with past medical history of coronary artery disease with previous stent to the proximal D1, known EF of 52%, AAA Hyperlipidemia, chronic kidney disease, peripheral vascular disease. We have been asked to evaluate the patient for bradycardia. Patient states that around 4 AM he got up to the bathroom to urinate and he was having lightheadedness and sweats, was hot and clammy and dizzy. He went back to bed and then got up again at 530 and he had the same symptoms but they seem to be worse. He also had nausea with this. While he was in the bathroom, he did not have any worsening of symptoms, no syncope episodes no fall. He was feeling better once he laid down on the bed. Yesterday he also had some left-sided chest pain and jaw pain. Heart rate is in the 40s, blood pressure 156/73, pulse ox 97% on room air. Patient is seen today in the emergency center waiting for a bed on the cardiac stepdown unit. Patient did have a stress test done last week in the office and this record will be obtained. Patient is scheduled for an outpatient echoc ardiogram. EKG: Sinus rhythm at 43 bpm Chest x-ray: Cardiomegaly and mild pulmonary vascular congestion. Correlate for heart failure. Laboratory studies: WBC 6, hemoglobin 12.2. Sodium 142, potassium 4.3, BUN 24 creatinine 1.19. Troponin negative x 1. proBNP 738. TSH 0.887. Home cardiac medications: Aspirin 81 mg daily, atorvastatin 80 mg at bedtime, Zetia 10 mg daily, Lopressor 25 mg twice daily, Nitrostat as needed, also on levothyroxine 88 mcg daily. Cardiac catheterization history 07/10/2021 with stent in the proximal D1 Echocardiogram performed 07/10/2021 revealed EF of 52%, mild AR, mild TR, mild . 02/10: Patient is seen today in the emergency center waiting for bed on the cardiac stepdown unit. Patient is complaining of feeling cold, no chest pain. Beta-natalie was discontinued. Echocardiogram is pending. Heart rate is in the 40s and 50s, blood pressure 152/68, pulse ox 97% on room air. Stress test report reviewed with the patient. Discussed need for cardiac catheterization with the patient and he is agreeable to move forward. Stress test report was obtained from the office which revealed nondiagnostic electrocardiographic stress testing. Abnormal myocardial perfusion imaging with a partially reversible large size defect involving the lateral and mid anterior wall suggestive stress induced ischemia probably in the diagonal branch territory in the LAD. 02/11 Patient is seen and examined. Patient is scheduled for cardiac catheterization today with Dr. Cadena. He denies chest pain, jaw pain. Heart rate has been in the 70s, blood pressure 135/77, pulse ox 96% on room air. Repeat blood work reveals BUN 22 creatinine 1.27. Echocardiogram reveals EF 55 to 60%. Technically difficult study. Mild to moderate concentric LVH. Mild diastolic dysfunction. Enlarged atria specifically left atrium. Mitral annular calcification and aortic valve sclerosis without significant stenosis. Mild aortic insufficiency. Mild to moderate mitral and mild tricuspid regurgitation. No pericardial effusion. No significant pulmonary hypertension. Physical examination: Gen: This is a 78-year-old male in no acute distress VS: reviewed HEENT: Head is atraumatic, normocephalic. Pupils equal, round. Sclerae is anicteric. NECK: Supple. No JVD. LUNGS: Clear to auscultation. No wheezes or rhonchi. No intercostal retractions. HEART: Regular rate and rhythm. No murmur. ABDOMEN: Soft No tenderness. EXTREMITIES: No pedal edema. No calf tenderness. NEUROLOGICAL: Patient is awake, alert and oriented x3. Assessment: Bradycardia normally runs low Dizziness lightheadedness, clammy, sweats, nausea, left-sided pain of unclear etiology, rule out CAD History of coronary artery disease with previous stent of the proximal D1 2021 AAA Hyperlipidemia Chronic kidney disease Peripheral vascular disease Plan: Continue patient's home cardiac medications except hold beta-natalie Schedule patient for cardiac catheterization today with Dr. Cadena Further recommendations to follow based upon clinical course Nurse practitioner note has been reviewed, I agree with documented findings and plan of care. Patient was seen and examined. Objective - Vital Signs Vital signs: Vital Signs Temp 97.9 F 02/12/24 10:59 Pulse 76 02/12/24 11:29 Resp 18 02/12/24 10:59 BP 181/74 02/12/24 10:59 Pulse Ox 97 02/12/24 10:59 FiO2 Intake & Output 02/11/24 02/12/24 02/12/24 18:59 06:59 18:59 Intake Total 0 Balance 0 Weight 92.986 kg 93.5 kg Intake: Oral 0 Other: # Voids 2 - Labs CBC & Chem 7: 02/11/24 06:12 02/12/24 07:59 Labs: Abnormal Lab Results - Last 24 Hours (Table) 02/12/24 Range/Units 07:59 Chloride 109 H (98-107) mmol/L BUN 22 H (9-20) mg/dL Creatinine 1.27 H (0.66-1.25) mg/dL Glucose 108 H (74-99) mg/dL
[2024-02-12] MEDS: ALPRAZolam 0.25 MG TAB PO PRN (21:29)
[2024-02-12] MEDS: SODIUM CHLORIDE 0.9% 1,000 ML IV SCH (22:30)
[2024-02-13] MEDS: HEPARIN SODIUM,PORCINE 10,000 UNIT in SODIUM CHLORIDE 0.9% 1,000 ML IRRIGATION ONE (06:56)
[2024-02-13] MEDS: SODIUM CHLORIDE 0.9% 1,000 ML IV ONE (06:56)
[2024-02-13] MEDS: HEPARIN SODIUM,PORCINE (1 ML) 2,500 UNIT in SODIUM CHLORIDE 0.9% 250 ML IRRIGATION ONE (06:57)
[2024-02-13] MEDS: fentaNYL (PF) 50 MCG/ML 2 ML AMP IVP ONE (07:08)
[2024-02-13] MEDS: LIDOCAINE 1% INJ 10MG/ML (20 ML MDV) SQ ONE (07:10)
[2024-02-13] MEDS: HEPARIN SODIUM 1,000 UN/ML (10ML VL) IVP ONE (07:14)
[2024-02-13] MEDS ORDERED: RX INFO: IV CONTRAST WAS GIVEN 1 EACH MISC MISCELLANE PRN (07:34)
--- NOTE | 2024-02-13 07:39 | P.CARDCATH ---
Date of Procedure: 02/13/24 Description of Procedure: Cardiac Catheterization: The patient is a 78-year-old male with a history of CAD status post stenting of the diagonal branch in 2021 who presented with a syncopal episode and had an abnormal MPI. Recommendations were made regarding cardiac catheterization, the risks and the complications were discussed with the patient who is in full understanding and agreement. Procedure Description: Patient was brought to [facility] in fasting semi-sedated state after receiving Fentanyl and Benadryl achieiving moderate conscious sedated state. Using Xylocaine Anesthesia and modified Seldinger technique, a 6-[place] sheath was introduced in the right radial artery . Subsequently, selective coronary angiography was performed using a 5-[place] 3.5 bend Matthew catheter. Multiple views of the coronary artery including hemiaxial views were obtained. The 6 [place] pigtail catheter was used to cross the aortic valve and LVEDP was calculated. Following that, catheter and sheath were removed. Hemostasis was obtained with deployment of vascular band . There was no immediate complication. Patient was returned to room in stable condition. Of note, the patient received a total of 5000 units of intravenous heparin as well as intra-arterial verapamil. Findings: Left main: This is a large size vessel, bifurcating into LAD and left circumflex, left main has no significant obstructive disease LAD: This is a large size vessel, reaching to the apex, giving rise to a large diagonal branch. The stented segment in the diagonal branch is patent with no significant in-stent restenosis. The LAD has no evidence of significant obstructive disease. Left circumflex: This is a large nondominant vessel giving rise to a large proximal obtuse marginal branch. The second obtuse marginal branch is small in caliber. The second obtuse marginal branch has diffuse intimal disease with no discrete lesion. RCA: This is a large dominant vessel, bifurcating distally to PDA and PLV. Calcified. The right coronary artery in the mid segment has diffuse intimal disease with a area of stenosis up to 50% with no progression compared to 2021. Left Ventriculogram: Not performed Hemodynamics: There was no gradient across the aortic valve, LVEDP was 14-18 mmHg Conclusion: 1. Patent stent in the diagonal branch 2. Moderate disease in the RCA with no progression of disease 3. Diffuse intimal disease in the second obtuse marginal branch with no progression of disease 4. Right dominance Recommendations: The patient will continue medical therapy with the aggressive coronary risks modifications. The findings and the recommendations were discussed with the patient and the family and they were in full understanding and agreement. Duration of sedation is 14 minutes.
[2024-02-13] MEDS: LOSARTAN 25 MG TAB PO SCH (09:41)
[2024-02-13 11:13] VITALS: TEMP 98
[2024-02-13 11:20] LABS: Basophils % (A) 1 %; Eosinophils # (A) 0.3 k/uL (0-0.7); Eosinophils % (A) 5 %; HCT 37.7 % (39.0-53.0); HGB 12.8 gm/dL (13.0-17.5); Lymphocytes # (A) 1.8 k/uL (1.0-4.8); Lymphocytes % (A) 30 %; MCH 30.9 pg (25.0-35.0); MCHC 34.1 g/dL (31.0-37.0); MCV 90.6 fL (80.0-100.0); Monocytes # (A) 0.3 k/uL (0-1.0); Monocytes % (A) 5 %; Neutrophils # (A) 3.4 k/uL (1.3-7.7); Neutrophils % (A) 58 %; Platelet Count 151 k/uL (150-450); RBC 4.16 m/uL (4.30-5.90); RDW 13.2 % (11.5-15.5); WBC 5.9 k/uL (3.8-10.6)
[2024-02-13 11:21] LABS: African American GFR (CKD) 64 (>60 ml/min/1.73 sqM); Anion Gap 4 mmol/L; Blood Urea Nitrogen 22 mg/dL (9-20); Calcium 8.3 mg/dL (8.4-10.2); Carbon Dioxide 24 mmol/L (22-30); Chloride 113 mmol/L (98-107); Glucose 120 mg/dL (74-99); Non-African American GFR(CKD) 56 (>60 ml/min/1.73 sqM); Sodium 141 mmol/L (137-145)
[2024-02-13 12:20] VITALS: PULSE 80
[2024-02-13] MEDS: SODIUM CHLORIDE 0.9% 1,000 ML IV SCH (12:27)
[2024-02-13] MEDS: TOBRAMYCIN 0.3% OPHTH DROPS 5 ML BTL BOTH EYES SCH (12:41)
--- NOTE | 2024-02-13 13:40 | P.PN ---
Subjective Progress Note Date: 02/12/24 Patient seen pain is a 78-year-old male with a past medical history of coronary artery disease status post stent placement, AAA patient is scheduled to get carotid duplex and lower extremity ultrasound on follow-up with vascular surgery, hypothyroidism, hyperlipidemia, prostate disorder status post Botox injections, anxiety/depression presents to ER with complaints of dizziness. Patient states that he woke up around 4 AM and while going to the bathroom he felt very dizzy and got back to his bed. Patient again woke up at about 5 AM which he usually does and getting ready to go to work. Patient states that she felt not good and nauseated and unstable and sweaty and dizzy. Patient's gave him nitro tablet and EMS was called. Patient noted to be bradycardic with heart rate in upper 40s. Patient states that he has been having jaw pains for the past 1 week and also groin pain mainly on the right side and currently on the left side. He has been taking Tylenol and Aleve. Patient is also complaining of bloating in the abdomen and passing gas. Denied any fever or chills. No chest pain. No shortness of breath. No headache. No cough or sputum production. Denied any recent illnesses or travel. Patient states that he was seen at Dr. Cadena's office recently and had stress test done and currently awaiting for report. Patient states that he did not take his medications yesterday morning and not sure whether he took extra doses last night. EKG on admission showed sinus bradycardia with heart rate 43 Chest x-ray showed cardiomegaly and mild pulmonary vascular congestion. Correlate with BNP for CHF. Laboratory showed WBC 5.7 hemoglobin 12.5 and platelets 164 Sodium 142 potassium 4.3 chloride 101 bicarb is 23 BUN 24 and creatinine 1.19 and blood sugar 122, troponin 0.012 and albumin 3.7 liver enzymes are elevated magnesium 1.6 02/11/2024 Patient is in the ER waiting for bed. RN denied any complaints of chest pain. Heart rate is still low. Metoprolol has been discontinued. 2D echocardiogram was done which showed normal systolic function with moderate to concentrate LVH, mild diastolic dysfunction. Enlarged atria specifically left atrium. Mild aortic insufficiency. Mild to moderate MR and mild TR. Stress test report from the [facility] revealed nondiagnostic electrocardiographic stress testing. Abnormal myocardial perfusion imaging with a partially reversible large size defect involving the lateral and mid anterior wall suggestive of stress-induced ischemia probably in the diagonal branch territory in the LAD. Cardiology is planning for catheterization tomorrow. Lab data showed WBC 5.7 hemoglobin 12.5 platelets 164 sodium 142 potassium 4.3 chloride 111 bicarb is 23 BUN 24 and creatinine 1.19 and blood sugar 122 liver enzymes are not elevated. 02/12/2024 Patient is currently sitting in the bed. Awake alert and oriented x 3. No complaints of dizziness or lightheadedness. No chest pain or shortness of air. No cough or sputum production. Patient is scheduled for cardiac catheterization tomorrow. Other laboratory showed BUN 2020 creatinine 1.27 and blood sugar 108 Patient does have low normal B12 level at 298. Current medications reviewed. Objective - Vital Signs Vital signs: Vital Signs Temp 97.9 F 02/12/24 10:59 Pulse 76 02/12/24 11:29 Resp 18 02/12/24 10:59 BP 181/74 02/12/24 10:59 Pulse Ox 97 02/12/24 10:59 FiO2 Intake & Output 02/12/24 02/12/24 02/13/24 06:59 18:59 06:59 Intake Total 0 540 Balance 0 540 Weight 93.5 kg Intake: Oral 0 540 Other: # Voids 2 - Exam PHYSICAL EXAMINATION: Patient is lying in the bed comfortably, no acute distress, awake alert and oriented.. HEENT: Normocephalic. Neck is supple. Pupils reactive. Nostrils clear. Oral ca vity is moist. Neck reveals no JVD, carotid bruits, or thyromegaly. CHEST EXAMINATION: Trachea is central. Symmetrical expansion. Lung gonzalez clear to auscultation and percussion. CARDIAC: Normal S1, S2 with no gallops. No murmurs ABDOMEN: Soft. Bowel sounds normal. No organomegaly. No abdominal bruits. Extremities: Bilateral lower extremity trace edema. No clubbing or cyanosis Neurologically awake, alert, oriented x3 with well-coordinated movements. No focal deficits noted Skin: No rash or skin lesions. Psychiatric: Coperative. Nonsuicidal Musculoskeletal: No joint swelling or deformity. Normal range of motion. - Labs CBC & Chem 7: 02/13/24 10:30 02/13/24 10:30 Labs: Abnormal Lab Results - Last 24 Hours (Table) 02/12/24 Range/Units 07:59 Chloride 109 H (98-107) mmol/L BUN 22 H (9-20) mg/dL Creatinine 1.27 H (0.66-1.25) mg/dL Glucose 108 H (74-99) mg/dL Assessment and Plan Assessment: Dizziness likely secondary to symptomatic bradycardia with heart rate 43 on admission Patient with abnormal stress test at [facility]. Coronary artery disease with history of stent placement Abdominal aortic aneurysm 4.5 x 4.1 cm as per ultrasound duplex aorta in 2021 and infrarenal abdominal aortic aneurysm measuring 4.9 cm on 05/25/[address] angiogram of the abdomen. Prostate disorder. Patient was given Botox previously Hyperlipidemia Hypothyroidism Anxiety/depression DVT prophylaxis with heparin subcu Plan: Patient will be continued on telemonitoring. Metoprolol is on hold. Patient will be continued on aspirin, statins. TSH within normal limits and proBNP levels reviewed. Cardiology is planning for catheterization tomorrow. 2D echocardiogram report reviewed. Ultrasound renal showed no hydronephrosis. Right atrophic kidney. Urinalysis is negative for infection. Symptomatically improved. Discussed with the patient and his at bedside. Continue to follow closely.
--- NOTE | 2024-02-13 14:11 | P.PN ---
Subjective Progress Note Date: 02/13/24 This is a 78-year-old male patient of Dr. Cadena with past medical history of coronary artery disease with previous stent to the proximal D1, known EF of 52%, AAA Hyperlipidemia, chronic kidney disease, peripheral vascular disease. We have been asked to evaluate the patient for bradycardia. Patient states that around 4 AM he got up to the bathroom to urinate and he was having lightheadedness and sweats, was hot and clammy and dizzy. He went back to bed and then got up again at 530 and he had the same symptoms but they seem to be worse. He also had nausea with this. While he was in the bathroom, he did not have any worsening of symptoms, no syncope episodes no fall. He was feeling better once he laid down on the bed. Yesterday he also had some left-sided chest pain and jaw pain. Heart rate is in the 40s, blood pressure 156/73, pulse ox 97% on room air. Patient is seen today in the emergency center waiting for a bed on the cardiac stepdown unit. Patient did have a stress test done last week in the office and this record will be obtained. Patient is scheduled for an outpatient echoc ardiogram. EKG: Sinus rhythm at 43 bpm Chest x-ray: Cardiomegaly and mild pulmonary vascular congestion. Correlate for heart failure. Laboratory studies: WBC 6, hemoglobin 12.2. Sodium 142, potassium 4.3, BUN 24 creatinine 1.19. Troponin negative x 1. proBNP 738. TSH 0.887. Home cardiac medications: Aspirin 81 mg daily, atorvastatin 80 mg at bedtime, Zetia 10 mg daily, Lopressor 25 mg twice daily, Nitrostat as needed, also on levothyroxine 88 mcg daily. Cardiac catheterization history 07/10/2021 with stent in the proximal D1 Echocardiogram performed 07/10/2021 revealed EF of 52%, mild AR, mild TR, mild . 02/10: Patient is seen today in the emergency center waiting for bed on the cardiac stepdown unit. Patient is complaining of feeling cold, no chest pain. Beta-natalie was discontinued. Echocardiogram is pending. Heart rate is in the 40s and 50s, blood pressure 152/68, pulse ox 97% on room air. Stress test report reviewed with the patient. Discussed need for cardiac catheterization with the patient and he is agreeable to move forward. Stress test report was obtained from the office which revealed nondiagnostic electrocardiographic stress testing. Abnormal myocardial perfusion imaging with a partially reversible large size defect involving the lateral and mid anterior wall suggestive stress induced ischemia probably in the diagonal branch territory in the LAD. 02/11 Patient is seen and examined. Patient is scheduled for cardiac catheterization today with Dr. Cadena. He denies chest pain, jaw pain. Heart rate has been in the 70s, blood pressure 135/77, pulse ox 96% on room air. Repeat blood work reveals BUN 22 creatinine 1.27. Echocardiogram reveals EF 55 to 60%. Technically difficult study. Mild to moderate concentric LVH. Mild diastolic dysfunction. Enlarged atria specifically left atrium. Mitral annular calcification and aortic valve sclerosis without significant stenosis. Mild aortic insufficiency. Mild to moderate mitral and mild tricuspid regurgitation. No pericardial effusion. No significant pulmonary hypertension. 02/12 This morning, patient underwent cardiac catheterization with Dr. Cadena which revealed patent stent in the diagonal branch. Moderate disease in the RCA with no progression of disease. Diffuse intimal disease in the second obtuse marginal branch with no progression of disease. Right dominance. Recommendati ons for aggressive pulmonary risk factor modification. Patient is seen today in his room. He states he has been up to the bathroom and back with no dizziness. He remains off beta-natalie. Heart rate is in the 70s, blood pressure 124/74. Repeat blood work reveals BUN 22 creatinine 1.24. Physical examination: Gen: This is a 78-year-old male in no acute distress VS: reviewed HEENT: Head is atraumatic, normocephalic. Pupils equal, round. Sclerae is anicteric. NECK: Supple. No JVD. LUNGS: Clear to auscultation. No wheezes or rhonchi. No intercostal retractions. HEART: Regular rate and rhythm. No murmur. ABDOMEN: Soft No tenderness. EXTREMITIES: No pedal edema. No calf tenderness. NEUROLOGICAL: Patient is awake, alert and oriented x3. Assessment: Bradycardia normally runs low Dizziness lightheadedness, clammy, sweats, nausea, left-sided pain of unclear etiology, rule out CAD History of coronary artery disease with previous stent of the proximal D1 2021 AAA Hyperlipidemia Chronic kidney disease Peripheral vascular disease Plan: Continue patient's home cardiac medications except hold beta-natalie Patient is cleared for discharge from cardiology May follow-up in the office [facility] Dr. Cadena in 1 to 2 weeks. Nurse practitioner note has been reviewed, I agree with documented findings and plan of care. Patient was seen and examined. Objective - Vital Signs Vital signs: Vital Signs Temp 96.6 F L 02/13/24 08:00 Pulse 56 L 02/13/24 08:00 Resp 16 02/13/24 08:00 BP 146/70 02/13/24 08:00 Pulse Ox 97 02/13/24 08:00 FiO2 Intake & Output 02/12/24 02/13/24 02/13/24 18:59 06:59 18:59 Intake Total 765 268 Balance 765 268 Weight 93.5 kg Intake: Intake, IV Titration 225 Amount Sodium Chloride 0.9% 1, 225 000 ml @ 75 mls/hr IV . [id number] [facility] Rx#:[id number] Oral 540 268 Other: Voiding Method Toilet # Voids 1 - Labs CBC & Chem 7: 02/13/24 10:30 02/13/24 10:30
[2024-02-13 17:33] VITALS: BP 132/70; RESP 18
--- NOTE | 2024-02-21 23:20 | P.DS ---
Providers Date of admission: 02/10/24 10:20 Expected date of discharge: 02/13/24 Attending physician: Iveth Herbert Consults: 02/10/24 10:19 Consult Physician Routine Consulting Provider: Alber Mosley Consult Reason/Comments: bradycardia Do you want consulting provider notified?: Yes Primary care physician: Alanna Owens [facility] Course: Discharge diagnosis Dizziness likely secondary to symptomatic bradycardia with heart rate 43 on admission. Status post cardiac catheterization. Patient is off beta-blockers. Improved symptomatically. Patient with abnormal stress test at [facility] office. Coronary artery disease with history of stent placement Abdominal aortic aneurysm 4.5 x 4.1 cm as per ultrasound duplex aorta in 2021 and infrarenal abdominal aortic aneurysm measuring 4.9 cm on 05/25/[address] angiogram of the abdomen. Prostate disorder. Patient was given Botox previously Hyperlipidemia Hypothyroidism Anxiety/depression DVT prophylaxis with heparin subcu Hospital course Patient seen pain is a 78-year-old male with a past medical history of coronary artery disease status post stent placement, AAA patient is scheduled to get carotid duplex and lower extremity ultrasound on follow-up with vascular surgery, hypothyroidism, hyperlipidemia, prostate disorder status post Botox injections, anxiety/depression presents to ER with complaints of dizziness. Patient states that he woke up around 4 AM and while going to the bathroom he felt very dizzy and got back to his bed. Patient again woke up at about 5 AM which he usually does and getting ready to go to work. Patient states that she felt not good and nauseated and unstable and sweaty and dizzy. Patient's gave him nitro tablet and EMS was called. Patient noted to be bradycardic with heart rate in upper 40s. Patient states that he has been having jaw pains for the past 1 week and also groin pain mainly on the right side and currently on the left side. He has been taking Tylenol and Aleve. Patient is also complaining of bloating in the abdomen and passing gas. Denied any fever or chills. No chest pain. No shortness of breath. No headache. No cough or sputum production. Denied any recent illnesses or travel. Patient states that he was seen at Dr. Cadena's office recently and had stress test done and currently awaiting for report. Patient states that he did not take his medications yesterday morning and not sure whether he took extra doses last night. EKG on admission showed sinus bradycardia with heart rate 43 Chest x-ray showed cardiomegaly and mild pulmonary vascular congestion. Correlate with BNP for CHF. Laboratory showed WBC 5.7 hemoglobin 12.5 and platelets 164 Sodium 142 potassium 4.3 chloride 101 bicarb is 23 BUN 24 and creatinine 1.19 and blood sugar 122, troponin 0.012 and albumin 3.7 liver enzymes are elevated magnesium 1.6 02/11/2024 Patient is in the ER waiting for bed. RN denied any complaints of chest pain. Heart rate is still low. Metoprolol has been discontinued. 2D echocardiogram was done which showed normal systolic function with moderate to concentrate LVH, mild diastolic dysfunction. Enlarged atria specifically left atrium. Mild aortic insufficiency. Mild to moderate MR and mild TR. Stress test report from the account development [facility] office revealed nondiagnostic electrocardiographic stress testing. Abnormal myocardial perfusion imaging with a partially reversible large size defect involving the lateral and mid anterior wall suggestive of stress-induced ischemia probably in the diagonal branch territory in the LAD. Cardiology is planning for catheterization tomorrow. Lab data showed WBC 5.7 hemoglobin 12.5 platelets 164 sodium 142 potassium 4.3 chloride 111 bicarb is 23 BUN 24 and creatinine 1.19 and blood sugar 122 liver enzymes are not elevated. 02/12/2024 Patient is currently sitting in the bed. Awake alert and oriented x 3. No complaints of dizziness or lightheadedness. No chest pain or shortness of air. No cough or sputum production. Patient is scheduled for cardiac catheterization tomorrow. Other laboratory showed BUN 2020 creatinine 1.27 and blood sugar 108 Patient does have low normal B12 level at 298. 02/13/2024 Patient is currently sitting in the chair. Was able to ambulate to the bathroom. No complaints of chest pain or shortness of breath. No further episodes of dizziness or lightheadedness. Heart rate is within normal limits. Otherwise patient underwent cardiac catheterization today. No PCI required. Patient is also complaining of right eye redness and itching with crusting on the medial side. Denied any fever or chills. No headache or or ocular pain. Patient is cleared from cardiology standpoint. Patient is being discharged home today. Cozaar was added 25 mg daily. Metoprolol will be discontinued at discharge.Cardiac catheterization showed patent stent in the diagonal branch. Moderate disease in the RCA with no progression of disease. Right dominance. Diffuse intimal disease in the second obtuse marginal branch with no progression of disease. Recommends to continue with medical therapy with aggressive coronary risks calculations. Patient is off beta-blockers. PHYSICAL EXAMINATION: Patient is lying in the bed comfortably, no acute distress, awake alert and oriented.. HEENT: Normocephalic. Neck is supple. Pupils reactive. Nostrils clear. Oral cavity is moist. Neck reveals no JVD, carotid bruits, or thyromegaly. CHEST EXAMINATION: Trachea is central. Symmetrical expansion. Lung gonzalez clear to auscultation and percussion. CARDIAC: Normal S1, S2 with no gallops. No murmurs ABDOMEN: Soft. Bowel sounds normal. No organomegaly. No abdominal bruits. Extremities: reveal no edema. No clubbing or cyanosis Neurologically awake, alert, oriented x3 with well-coordinated movements. No focal deficits noted Skin: No rash or skin lesions. Psychiatric: Coperative. Nonsuicidal Musculoskeletal: No joint swelling or deformity. Normal range of motion. Vital signs: Vital Signs Temp 96.6 F L 02/13/24 08:00 Pulse 56 L 02/13/24 08:00 Resp 16 02/13/24 08:00 BP 146/70 02/13/24 08:00 Pulse Ox 97 02/13/24 08:00 FiO2 Intake & Output 02/12/24 02/13/24 02/13/24 18:59 06:59 18:59 Intake Total 765 268 Balance 765 268 Weight 93.5 kg Intake: Intake, IV Titration 225 Amount Sodium Chloride 0.9% 1, 225 000 ml @ 75 mls/hr IV . [id number] [facility] Rx#:[id number] Oral 540 268 Other: Voiding Method Toilet # Voids 1 Total time taken greater than 35 minutes including 18 minutes for counseling and coordination of care. Patient Condition at Discharge: Fair Plan - Discharge Summary Discharge Rx Participant: Yes New Discharge Prescriptions: New Tobramycin 0.3% Ophth Soln [Tobrex 0.3% Ophth Soln] 1 drops BOTH EYES Q4HR 5 Days #10 ml Cyanocobalamin (Vitamin B-12) [Vitamin B-12] 1,000 mcg PO DAILY #30 tablet Losartan [Cozaar] 25 mg PO DAILY #30 tab Continue ALPRAZolam [Xanax] 0.25 mg PO TID PRN PRN Reason: Anxiety Atorvastatin [Lipitor] 80 mg PO HS #90 tab Nitroglycerin Sl Tabs [Nitrostat] 0.4 mg SUBLINGUAL Q5M PRN #100 tab PRN Reason: Chest Pain Metamucil Gummy 1 tab PO DAILY Latanoprost [Xalatan 0.005%] 1 drop BOTH EYES HS Aspirin 81 mg PO DAILY #90 tab Levothyroxine Sodium [Synthroid] 88 mcg PO DAILY Ezetimibe [Zetia] 10 mg PO DAILY Discontinued Metoprolol Tartrate [Lopressor] 25 mg PO BID #180 tab Discharge Medication List ALPRAZolam [Xanax] 0.25 mg PO TID PRN 07/10/21 [History] Latanoprost [Xalatan 0.005%] 1 drop BOTH EYES HS 07/10/21 [History] Aspirin 81 mg PO DAILY #90 tab 07/11/21 [Rx] Atorvastatin [Lipitor] 80 mg PO HS #90 tab 07/11/21 [Rx] Nitroglycerin Sl Tabs [Nitrostat] 0.4 mg SUBLINGUAL Q5M PRN #100 tab 07/11/21 [Rx] Ezetimibe [Zetia] 10 mg PO DAILY 02/10/24 [History] Levothyroxine Sodium [Synthroid] 88 mcg PO DAILY 02/10/24 [History] Metamucil Gummy 1 tab PO DAILY 02/10/24 [History] Cyanocobalamin (Vitamin B-12) [Vitamin B-12] 1,000 mcg PO DAILY #30 tablet 02/13/24 [Rx] Losartan [Cozaar] 25 mg PO DAILY #30 tab 02/13/24 [Rx] Tobramycin 0.3% Ophth Soln [Tobrex 0.3% Ophth Soln] 1 drops BOTH EYES Q4HR 5 Days #10 ml 02/13/24 [Rx] Follow up Appointment(s)/Referral(s): Danisha Cadena MD [STAFF PHYSICIAN] - 1 Week Alanna Owens MD [Primary Care Provider] - 1-2 days Discharge Disposition: HOME SELF-CARE
== END 2024-02-13 17:34 | disposition home or self-care (01) ==
LOC: EC 07:33 → 3SCARD 10:20
PROVIDERS: ADMIT Internal Medicine; ATTEND Internal Medicine
DX: R00.1 Bradycardia, unspecified (principal); I73.9 Peripheral vascular disease, unspecified; I50.9 Heart failure, unspecified; I71.43 Infrarenal abdominal aortic aneurysm, without rupture; I25.10 Atherosclerotic heart disease of native coronary artery without angina pectoris; E03.9 Hypothyroidism, unspecified; E78.5 Hyperlipidemia, unspecified; N18.9 Chronic kidney disease, unspecified; N42.9 Disorder of prostate, unspecified; R26.81 Unsteadiness on feet; R61 Generalized hyperhidrosis; R11.0 Nausea; R10.30 Lower abdominal pain, unspecified; R14.0 Abdominal distension (gaseous); R68.84 Jaw pain; H57.89 Other specified disorders of eye and adnexa; F32.A Depression, unspecified; F41.9 Anxiety disorder, unspecified; Z79.82 Long term (current) use of aspirin; Z79.899 Other long term (current) drug therapy; Z79.890 Hormone replacement therapy; Z88.8 Allergy status to other drugs, medicaments and biological substances; Z95.5 Presence of coronary angioplasty implant and graft
CPT/HCPCS: 96372 ×4; 96361; 96365; 96375; 99285; 36415; 93005; 93458; 82747; 83880; 80053; 80048 ×3; 84443; 82607; 83735; 84484; 85025 ×3; 85610; 85730; 81003; 71046; 76770; G0378 ×4; C8929; C1769 ×2; C1894; J1644 ×5; J2003; J0461; J3010; Q9957; J3475; 93306

== ENCOUNTER → 2024-03-31 | Outpatient (CLI) | payer MEDICARE ==
[2024-03-31 13:25] LABS: African American GFR (CKD) 60 (>60 ml/min/1.73 sqM); Blood Urea Nitrogen 25 mg/dL (9-20); Non-African American GFR(CKD) 52 (>60 ml/min/1.73 sqM)
--- NOTE | 2024-03-31 17:24 | CT ---
EXAMINATION TYPE: CT angio abdomen pelvis CT DLP: 2161 mGycm, Automated exposure control for dose reduction was used. DATE OF EXAM: 03/31/2024 2:22 PM COMPARISON:CTA abdomen 05/25/2022, CT abdomen and pelvis 09/07/2016, aortic ultrasound duplex 07/11/2021. CLINICAL INDICATION:Male, 78 years old with history of I71.40 AAA; f/u aneurysm TECHNIQUE: Multiple thin slice sub-millimeter images were obtained through the abdomen and pelvis bef ore and after administration of contrast. Patient was given Isovue 370, 100 cc intravenously. 3-D r econstructed images and maximum intensity projection images were obtained of the abdominal aorta and its branches. FINDINGS: CTA Abdomen and pelvis: Atherosclerotic plaquing is identified within the abdominal aorta. Fusiform i nfrarenal abdominal aortic aneurysm measuring 5.1 x 5.0 cm with eccentric mural thrombus. It is measu red up to 4.9 cm. Fusiform abdominal aortic aneurysm at the hiatus measuring up to 3.5 cm. Previously measured up to 3.6 cm. No evidence for intramural hematoma or dissection. The origins of the superio r mesenteric artery, renal arteries, inferior mesenteric artery, and celiac axis are patent. 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 Mild stenosis of the origin of the SMA secondary to calcified plaque. Moderate stenosis at the origin of the right renal artery secondary to calcified and noncalcified plaque. The re are 2 left renal arteries identified. Atherosclerotic plaquing with some mural thrombus formation is identified in the common iliac arteries. The bilateral visualized internal and external iliac art eries are widely patent. The visualized bilateral common femoral arteries are widely patent with the proximal portions of the superficial and deep femoral arteries bilaterally being patent. VISCERA: The liver, spleen, adrenal glands, kidneys, pancreas, and gallbladder are not optimally enha nced due the arterial phase utilized. LIVER: Unremarkable GALLBLADDER AND BILE DUCTS: Unremarkable. PANCREAS: Unremarkable. SPLEEN: Unremarkable. ADRENAL GLANDS: Unremarkable. KIDNEYS AND URETERS: No evidence of hydronephrosis. No left renal calculi. Nonobstructive right renal calculi measuring up to 4 mm. Atrophy of the right kidney. PELVIS BLADDER: Unremarkable REPRODUCTIVE: Coarse calcifications of the prostate gland are identified. ABDOMEN & PELVIS STOMACH AND BOWEL: Proximal duodenal diverticulum.No focal bowel wall thickening or surrounding infla mmatory changes. The appendix is within normal limits. Distal colonic diverticulosis without evidence for acute diverticulitis. No evidence of bowel obstruction. PERITONEUM: No evidence of pneumoperitoneum or free fluid. MUSCULOSKELETAL: No acute osseous abnormalities. Grade 1 anterolisthesis of L4 on L5 without evidence of pars defect. Mild multilevel degenerative disc disease. LYMPH NODES: No evidence for lymphadenopathy. SOFT TISSUE/ABDOMINAL WALL: Tiny fat filled umbilical hernia. Fat filled right inguinal hernia. LOWER CHEST: Visualized lung bases are clear. Coronary artery calcifications. Small aortic valvular c alcifications. IMPRESSION 1. Marginal increase in size of infrarenal fusiform abdominal aortic aneurysm measuring up to 5.1 cm , previously 4.9 cm. Stable abdominal aortic aneurysm at the hiatus measuring up to 3.5 cm. 2. Atherosclerotic disease involving abdominal aorta and its branches. 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 Additional moderate stenosis at the origin of the right renal artery with subsequent atrophy of the right kidney again. Nonobstructive ri ght renal calculi. 3. Colonic diverticulosis without evidence for acute diverticulitis. [facility], , 03/31/2024 5:22 PM
== END | disposition home or self-care (01) ==
LOC: RADCTMAIN 12:35
PROVIDERS: ATTEND Surgery
DX: I71.40 Abdominal aortic aneurysm, without rupture, unspecified (principal); I70.0 Atherosclerosis of aorta; K57.30 Diverticulosis of large intestine without perforation or abscess without bleeding; N20.0 Calculus of kidney; Z86.79 Personal history of other diseases of the circulatory system
CPT/HCPCS: 82565; 84520; 36415; 74174; Q9967

== ENCOUNTER → 2024-05-04 | Outpatient (CLI) | payer MEDICARE ==
[2024-05-04 10:29] LABS: ALT 33 U/L (10-49); AST 34 U/L (14-35); Alkaline Phosphatase 104 U/L (41-126); BUN/Creat Ratio 16.64 Ratio (12.00-20.00); Blood Urea Nitrogen 23.3 mg/dL (9.0-27.0); Calcium 8.9 mg/dL (8.7-10.3); Carbon Dioxide 26.3 mmol/L (21.6-31.8); Chloride 110 mmol/L (96-109); Chol/HDL Ratio 4.18 Ratio; Globulin 2.5 g/dL (1.6-3.3); Glucose 112 mg/dL (70-110); LDL Cholesterol,Calculated 111.3 mg/dL (0.0-131.0); Sodium 145 mmol/L (135-145); Total Bilirubin 0.5 mg/dL (0.3-1.2); Total Protein 6.5 g/dL (6.2-8.2)
== END | disposition home or self-care (01) ==
LOC: LABWHC1 07:16
PROVIDERS: ATTEND Internal Medicine Interventional Cardiology
DX: I10 Essential (primary) hypertension (principal); E78.2 Mixed hyperlipidemia
CPT/HCPCS: 36415; 80053; 80061

== ENCOUNTER → 2024-11-04 | Outpatient (CLI) | payer MEDICARE | END | disposition home or self-care (01) | LOC: LABWHC1 07:46 | PROVIDERS: ATTEND Internal Medicine | DX: E03.9 Hypothyroidism, unspecified (principal) | CPT/HCPCS: 36415; 84443 ==